=== PATIENT | male | born 1965 | race Caucasian/White ===

== ENCOUNTER 2023-08-29 21:41 | Inpatient (IN) | payer BC, SELFPAY ==
[2023-08-29 19:17] VITALS: BP 99/64
--- NOTE | 2023-08-29 19:38 | ED.GENMED ---
History of Present Illness
<ISABELL Phan - Last Filed: 08/29/23 21:03>
General
Chief Complaint: Chest Pain
Source: patient
Exam Limitations: none
Time Seen by Provider: 08/29/23 19:22
Travel History
Have you had any contact with someone who has COVID-19?: No
Do you have any symptoms of coronavirus? Fever > 100 degrees, chills, cough, shortness of breath, sore throat, loss of taste or smell, muscle aches, or headache?: No
History of Present Illness
History of Present Illness:
This is a 58 year old male that comes in with c/o SOB. State that he was walking at work and pushing his cart and he was SOB. States that he had to stop and catch his breath. States that this was worse today. Feels that it started on Tuesday as
they were doing yard work and he had to stop. States that he also felt his heart was racing a couple of times. States that he feels SOB. Denies any fever, chills, chest pain, cough, abd pain, nausea, vomiting, diarrhea, headache, dizziness, urinary
burning.
Past History
<ISABELL Phan - Last Filed: 08/29/23 21:03>
Past History
ED Past Medical History: HTN, Hypercholesterolemia, NIDDM and Other (Renal calculus)
ED Past Surgical History: Urological (Lithotripsy for Kidney stones) and Other (Hernia, )
Social History
Tobacco: Former smoker
Alcohol: Occasional
Personal:
Living: with family
Employment: Employed
Review of Systems
<ISABELL Phan - Last Filed: 08/29/23 21:03>
Review of Systems
All Other Systems: ROS reviewed and negative except as documented in HPI and ROS
Constitutional: Reports no symptoms; Denies fever or chills
EENT: Reports no symptoms
Respiratory: Reports trouble breathing; Denies cough
Cardiac: Reports no symptoms; Denies chest pain
ABD/GI: Reports no symptoms; Denies abdominal pain, nausea, vomiting or diarrhea
: Reports no symptoms; Denies dysuria, frequency or urgency
Musculoskeletal: Reports no symptoms
Skin: Reports no symptoms
Neurological: Reports no symptoms; Denies dizzy or headache
Psychiatric: Reports no symptoms
Phy Exam
<ISABELL Phan - Last Filed: 08/29/23 21:03>
General Physical Exam
General Presentation: well appearing and no apparent distress
General age: appears stated age
General Skin: warm and dry
General Habitus: normal
General Mental: alert
General Hydration: appears well hydrated
ENT Exam
ENT Exam: TM's normal, pharynx normal and neck supple
Eye Exam
Eye Exam: EOMI
Cardiovascular Exam
Cardiovascular Exam: regular rate/rhythm, no edema, normal peripheral pulses and other (Murmur)
Pulmonary Exam
Pulmonary Exam: lungs clear, no respiratory distress, no rales, chest non tender, no crackles, no rhonchi, no wheezing and no cough
Gastrointestinal Exam
Gastrointestinal Exam: normal bowel sounds, non tender, soft, no organomegaly, no pulsatile mass and non distended
Musculoskeletal Exam
Musculoskeletal Exam: full ROM and no edema
Skin Exam
Skin Exam: normal color, warm/dry, no rash and no petechia
Psychiatric Exam
Psychiatric Exam: normal mood/affect
Scores
<ISABELL Phan - Last Filed: 08/29/23 21:03>
Heart Score for Chest Pain Patients
STEMI patient?: No
History: Moderately Suspicious
ECG: Significant ST-Depression
Age: >45 - <65 years
Risk Factors: 1 or 2 Risk Factors
Troponin: >/= 3 x Normal Limit
Heart Score for Chest Pain Patients: 7
Heart Score Risk: 72.7 % MACE over next 6 weeks
<Gabriele Kathleen MD - Last Filed: 08/29/23 21:15>
Heart Score for Chest Pain Patients
Heart Score for Chest Pain Patients: 7
Heart Score Risk: 72.7 % MACE over next 6 weeks
Course
<ISABELL Phan - Last Filed: 08/29/23 21:03>
Orders/Labs/Results
Orders:
Orders
08/29/23 19:13
Electrocardiogram (*1) Urgent
Reason for Study: Chest Pain
EKG- Treatment ONCE
08/29/23 19:36
CMP [Comprehensive Metabolic Panel] Urgent
Complete Blood Count/With Diff Urgent
Troponin I Urgent
08/29/23 19:38
0.9% Sodium Chloride 500 ml [Nss] 500 ml IV BOLUS
08/29/23 19:49
D-Dimer Urgent
PTT Urgent
08/29/23 20:33
0.9% Sodium Chloride 500 ml [Nss] 500 ml IV BOLUS
Insulin Aspart [NOVOLOG vial] 14 units SC NOW STA
08/29/23 20:36
Hemoglobin A1c [Glycohemoglobin (HgbA1c)] Urgent
08/29/23 20:37
Aspirin Chewable [Low Strength Aspirin] 324 mg PO NOW STA
08/29/23 20:40
CARDIOLOGY CONSULT Urgent
Consulting Provider: Staci Burkett
Was physician already notified: Yes
08/29/23 20:41
CR Chest - 2 Views Urgent
Comment:
Reason For Exam: SOB
08/29/23 20:48
Heparin 4,000 units IV NOW STA
Nursing to Place Non Medication Order As Directed
Physician Order: PTT 6 hours after initial start of Heparin infusion
08/29/23 20:55
Add On- LAB Urgent
Tests Added?: PTT
08/29/23 20:58
Metoprolol [Lopressor] 12.5 mg PO NOW STA
08/29/23 21:00
Heparin 12748 Units/250 ml 25,000 units in 250 ml IV PER PROTOCOL
Weight to be used for heparin protocol in kilograms (kg):: 92
Protocol:: Cardiac Tx/Acute Coronary
PTT Goal Range to be used:: PTT 73 to 111 seconds
Order type:: Initial
INITIAL Infusion Dose (UNITS/KG/hr) & then follow protocol:: 15 units/kg/hr
Infusion Dose in UNITS/hr & then follow protocol (UNITS/hr):: 1,400
INFUSION RATE in mL/hr & then follow protocol (mL/hr):: 14
PTT less than or equal to 64 seconds:: Increase rate by 200 units/hr (+ 2 mL/hr)
PTT 64.1 to 72.9 seconds:: Increase rate by 100 units/hr (+ 1 mL/hr)
PTT 73 to 111 seconds:: Target Range. No change in rate.
PTT 111.1 to 130.9 seconds:: Decrease rate by 100 units/hr (- 1 mL/hr)
PTT 131 to 199.9 seconds:: HOLD for 1 hr. Then decrease rate by 200 units/hr (- 2 mL/hr)
PTT greater than or equal to 200 seconds:: HOLD for 2 hrs & Notify Provider. Then decrease by 200 units/hr (-
2 mL/hr)
Lab follow-up:: Each change, PTT q6h until 2 consecutive are therapeutic. Then PTT
daily.
08/29/23 22:39
Troponin I Urgent
Abnormal Lab Results
08/29/23
19:36
RBC 4.64 L 10^6/uL
(4.70-6.10)
Hct 37.5 L %
(39.0-52.0)
Absolute Neuts (auto) 7.7 H 10^3/uL
(1.4-6.5)
Absolute Lymphs (auto) 1.1 L 10^3/uL
(1.2-3.4)
Neutrophils % 83.0 H %
(42.2-75.2)
Lymphocytes % 11.6 L %
(20.5-51.1)
Sodium 131 L mmol/L
(135-145)
Chloride 95 L mmol/L
(98-107)
BUN 33 H mg/dl
(9-20)
Glucose 559 H* mg/dl
(70-99)
Troponin I 1.110 H* ng/ml
08/29/23 19:36
08/29/23 19:36
Sodium slighlty low. Chloride low. Dehydration. Hyperglycemia, Troponin elevated to 1.110, D-dimer 0.50
Vital Signs
Initial and Last Documented VS:
Initial Vital Signs
Temp Pulse Resp BP Pulse Ox
37.2 C 99 18 99/64 96
08/29/23 19:17 08/29/23 19:17 08/29/23 19:17 08/29/23 19:17 08/29/23 19:17
Last Documented Vital Signs
Temp Pulse Resp BP Pulse Ox
37.2 C 92 22 91/42 96
08/29/23 19:17 08/29/23 20:45 08/29/23 20:45 08/29/23 20:00 08/29/23 20:45
<Gabriele Kathleen MD - Last Filed: 08/29/23 21:15>
Orders/Labs/Results
Orders:
Orders
08/29/23 19:13
Electrocardiogram (*1) Urgent
Reason for Study: Chest Pain
EKG- Treatment ONCE
08/29/23 19:36
CMP [Comprehensive Metabolic Panel] Urgent
Complete Blood Count/With Diff Urgent
Troponin I Urgent
08/29/23 19:38
0.9% Sodium Chloride 500 ml [Nss] 500 ml IV BOLUS
08/29/23 19:49
D-Dimer Urgent
PTT Urgent
08/29/23 20:33
0.9% Sodium Chloride 500 ml [Nss] 500 ml IV BOLUS
Insulin Aspart [NOVOLOG vial] 14 units SC NOW STA
08/29/23 20:36
Hemoglobin A1c [Glycohemoglobin (HgbA1c)] Urgent
08/29/23 20:37
Aspirin Chewable [Low Strength Aspirin] 324 mg PO NOW STA
08/29/23 20:40
CARDIOLOGY CONSULT Urgent
Consulting Provider: Staci Burkett
Was physician already notified: Yes
08/29/23 20:41
CR Chest - 2 Views Urgent
Comment:
Reason For Exam: SOB
08/29/23 20:48
Heparin 4,000 units IV NOW STA
Nursing to Place Non Medication Order As Directed
Physician Order: PTT 6 hours after initial start of Heparin infusion
08/29/23 20:55
Add On- LAB Urgent
Tests Added?: PTT
08/29/23 20:58
Metoprolol [Lopressor] 12.5 mg PO NOW STA
08/29/23 21:00
Heparin 22236 Units/250 ml 25,000 units in 250 ml IV PER PROTOCOL
Weight to be used for heparin protocol in kilograms (kg):: 92
Protocol:: Cardiac Tx/Acute Coronary
PTT Goal Range to be used:: PTT 73 to 111 seconds
Order type:: Initial
INITIAL Infusion Dose (UNITS/KG/hr) & then follow protocol:: 15 units/kg/hr
Infusion Dose in UNITS/hr & then follow protocol (UNITS/hr):: 1,400
INFUSION RATE in mL/hr & then follow protocol (mL/hr):: 14
PTT less than or equal to 64 seconds:: Increase rate by 200 units/hr (+ 2 mL/hr)
PTT 64.1 to 72.9 seconds:: Increase rate by 100 units/hr (+ 1 mL/hr)
PTT 73 to 111 seconds:: Target Range. No change in rate.
PTT 111.1 to 130.9 seconds:: Decrease rate by 100 units/hr (- 1 mL/hr)
PTT 131 to 199.9 seconds:: HOLD for 1 hr. Then decrease rate by 200 units/hr (- 2 mL/hr)
PTT greater than or equal to 200 seconds:: HOLD for 2 hrs & Notify Provider. Then decrease by 200 units/hr (-
2 mL/hr)
Lab follow-up:: Each change, PTT q6h until 2 consecutive are therapeutic. Then PTT
daily.
08/29/23 22:39
Troponin I Urgent
Abnormal Lab Results
08/29/23
19:36
RBC 4.64 L 10^6/uL
(4.70-6.10)
Hct 37.5 L %
(39.0-52.0)
Absolute Neuts (auto) 7.7 H 10^3/uL
(1.4-6.5)
Absolute Lymphs (auto) 1.1 L 10^3/uL
(1.2-3.4)
Neutrophils % 83.0 H %
(42.2-75.2)
Lymphocytes % 11.6 L %
(20.5-51.1)
Sodium 131 L mmol/L
(135-145)
Chloride 95 L mmol/L
(98-107)
BUN 33 H mg/dl
(9-20)
Glucose 559 H* mg/dl
(70-99)
Troponin I 1.110 H* ng/ml
08/29/23 19:36
08/29/23 19:36
Vital Signs
Initial and Last Documented VS:
Initial Vital Signs
Temp Pulse Resp BP Pulse Ox
37.2 C 99 18 99/64 96
08/29/23 19:17 08/29/23 19:17 08/29/23 19:17 08/29/23 19:17 08/29/23 19:17
Last Documented Vital Signs
Temp Pulse Resp BP Pulse Ox
37.2 C 92 22 91/42 96
08/29/23 19:17 08/29/23 20:45 08/29/23 20:45 08/29/23 20:00 08/29/23 20:45
<ISABELL Phan - Last Filed: 08/29/23 21:03>
MDM/Problems Addressed
Differential Diagnosis Includes:
PE, Cardiac ischemia,
MDM/Problems Addressed:
This is a 58 year old male that comes in with c/o SOB. State that this started on Tuesday and was worse today. 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
Will check labs, D-dimer and if positive get CT scan, If negative will get chest x-ray and admit for ST depression and further evaluation.
Back into see patient patient. Explained that he would be admitted. His blood work shows dehydration and hyperglycemia. His Troponin is also elevated. D-dimer normal. Dr. Kathleen spoke with Dr. Burkett. Sent a second message to see if she would
like patient on Heparin. Hospitalist notified about admission.
Chronic conditions affecting care: HTN
Acute Exacerbation and/or Progression of Chronic Illness:
NA
<ISABELL Phan - Last Filed: 08/29/23 21:03>
*Radiology
Radiology exam reviewed: preliminary read by ED provider (Chest- Negative for active disease. )
*Pulse Oximetry
Patient hypoxic: no
*EKG
Interpreted by ED Provider?: Yes
Heart Rate: 100
Rate: tachycardiac
Rhythm: sinus
Kirk: normal axis
Interval: normal interval
QRS Pattern: normal QRS
Ischemia: ST depression (I, II, V4, V5, V6)
*Laundry Presser Interpretation
Rate: tachycardiac
Heart Rate: 100
Rhythm: sinus tachycardia
*Critical Care Note
Total Time (30-74mins, 75-104mins- exclusive of procedures): Not Applicable
ED Attending Note
<ISABELL Phan - Last Filed: 08/29/23 21:03>
-
Portions of this chart may have been created with voice recognition software.� Occasional wrong word or��sound alike� substitutions may have occurred due to the inherent limitations of voice recognition software.
<Gabriele Kathleen MD - Last Filed: 08/29/23 21:15>
ED Attending Note
Patient seen and examined by attending physician: Yes
ED Attending Note:
I have seen and evaluated the patient with a [id number] encounter. I have spoken to the advance practicer provider and involved in the medical history, the physical exam, medical decision making.
Evaluation and management service: agree unless noted differently below.
Results interpretation: agree unless noted differently below.
Focused HPI: 58-year-old male with history of hypertension, hyperlipidemia, diabetes who presents for evaluation of exertional dyspnea. Patient reports onset Tuesday while he was doing yard work�he reports that he has to rest frequently due to
dyspnea on exertion while doing basic yard tasks. He says that Tuesday started have symptoms even with walking up the stairs. Today the symptoms continued even with light exertion and so he came to the emergency room. He denies any dyspnea at
rest. He denies any chest pain at any point. He denies any other complaints. Denies any known cardiac history.
Physical exam: Awake alert not in distress. Soft blood pressure but otherwise normal vitals. He has a systolic murmur on cardiac auscultation. Lungs clear to auscultation bilaterally. No edema. Good pulses in all extremities.
Medical Decision Makin-year-old male presents with progressive exertional dyspnea for the past few days. No symptoms at rest. Concern for unstable angina. EKG shows lateral ST depressions. Recent labs including a CBC which showed no anemia,
CMP which showed poorly controlled blood glucose with sugar of 559. D-dimer negative. Initial troponin 1.1. Chest x-ray no acute disease. Discussed with cardiology, treated with aspirin, heparin. Admit to hospitalist.
Discharge Plan
Departure
Patient Disposition: Admit
Date of Disposition: 08/29/23
Time of Disposition: 20:48
Admit to: Telemetry
Presentation/result/management discussed w/ accepting MD/DO: Hospitalist
Patient with high blood pressure during this ER visit?: No
Condition: Good
Covid-19: Not Applicable
Discharge Problem:
SOB (shortness of breath), Elevated troponin
Prescriptions:
No Action
lisinopril-hydrochlorothiazide 20-12.5 mg Tablet
1 tab PO DAILY
pravastatin 80 mg Tablet
80 mg PO HS
Janumet XR 100-1,000 mg Tablet, Er Multiphase 24 Hr
1 tab PO QPM
Interventions
Interventions:
*Risk Screen - Suicide Last Done: 08/29/23 19:17
*General Assessment Last Done: 08/29/23 19:17
*Neglect/Abuse Screening Last Done: 08/29/23 19:17
ED- Fall Risk Assessment Last Done: 08/29/23 20:15
ED- Cardiac Assessment Last Done: 08/29/23 20:15
Discharge Date and Time
Print Language: ARABIC
[2023-08-29 19:42] VITALS: BMI 28.3
[2023-08-29 19:43] VITALS: BP 97/74
[2023-08-29] MEDS: NSS 500 IV ×4 (19:50→21:33)
[2023-08-29 20:00] VITALS: BP 91/42
[2023-08-29 20:01] LABS: % Basophils 0.1 % (0-2); % Immature Granulocytes 0.4 % (0-0.5); % Lymphocytes 11.6 % (20.5-51.1); % Monocytes 4.9 % (1.7-9.3); Absolute Lymphocytes 1.1 10^3/uL (1.2-3.4); Absolute Monocytes 0.5 10^3/uL (0.1-0.6); Absolute Neutrophils 7.7 10^3/uL (1.4-6.5); Hematocrit 37.5 % (39.0-52.0); Hemoglobin 13.5 g/dL (13.0-18.0); Mean Corpuscular Hgb 29.1 pg (27.0-31.0); Mean Corpuscular Volume 80.8 fL (80.0-94.0); Mean Platelet Volume 10.2 fL (7.4-10.4); Nucleated Red Blood Cells % 0 % (-); Platelet Count 261 10^3/uL (130-400); Red Blood Cell Count 4.64 10^6/uL (4.70-6.10); Red Cell Dist. Width 12.9 % (11.5-14.5); White Blood Cell Count 9.3 10^3/uL (4.8-10.8)
--- NOTE | 2023-08-29 20:30 | EDRN ---
Updated patient and his on lab results, SAURAV Herrera in as well to go over results with patient and .
[2023-08-29 20:32] LABS: ALT (SGPT) 36 U/L (0-50); AST (SGOT) 40 U/L (17-59); Albumin 4.5 g/dl (3.5-5.0); Alkaline Phosphatase 76 U/L (38-126); Blood Urea Nitrogen 33 mg/dl (9-20); Carbon Dioxide 22 mmol/L (22-30); Chloride 95 mmol/L (98-107); Estimated Creatinine Clearance 71 ml/min; Glucose 559 mg/dl (70-99); Sodium 131 mmol/L (135-145); Total Bilirubin 0.8 mg/dl (0.2-1.3); Total Protein 6.8 g/dl (6.3-8.2); eGFR > 60.00
[2023-08-29] MEDS: NOVOLOG vial 14 UNITS SC (20:44)
[2023-08-29] MEDS: LOW STRENGTH ASPIRIN 324 MG PO (20:45)
[2023-08-29 21:04] VITALS: BP 112/84
[2023-08-29] MEDS: HEPARIN 4000 UNITS IV (21:16)
[2023-08-29] MEDS: HEPARIN 25000 UNITS/250 ML IV (21:18)
[2023-08-29 21:25] LABS: Glucose - Point of Care 451 mg/dl (70-99)
--- NOTE | 2023-08-29 21:31 | HPS.HSE ---
Family Physician
-
Family Physician:
Chief Complaint
-
SOB
History of Present Illness
Patient is a 58y M with PMH significant for hypertension and DM-II who presents to ED complaining of GUZMÁN. Patient states that he initially noted some mild dyspnea with activity on Tuesday. He notes that he was 'aware' of his breathing
initially. He denies any chest pain or pressure. His symptoms gradually worsened over the weekend. Last PM he felt nauseated / indigestion and was unable to sleep well. Today, he went to work where he is required to lift, push, pull, etc. He
noted significant shortness of breath with that activity. His symptoms did improve with rest.
Patient became diaphoretic at home this evening and felt his heart racing. He presented to the ED for further evaluation.
Patient denies any prior history of similar symptoms.
In the ED, he notes that he is asymptomatic at rest.
Medical History
Past Medical History
Past Medical History: Reports Other
Additional Past Medical History:
Hypertension
DM-II
Dyslipidemia
Past Surgical History: Reports Other
Additional Past Surgical History:
Hernia Repair with Mesh
Lithotripsy
Social History
Tobacco: Former Smoker (Quit smoking in 1980s. Total of < 10 pack years.)
Alcohol: Occasional
Drug: None
Family History
Family History: Other (Father: Colon Cancer)
Allergies / Home Medications
Allergies reflects when Allergies were last updated in [email or web address].
Home Medications with original date entered in [email or web address]
Allergy/Medication List:
Allergies
Allergy/AdvReac Type Severity Reaction Status Date / Time
No Known Allergies Allergy Unverified 08/29/23 19:16
Home Medications
lisinopril 20 mg-hydrochlorothiazide 12.5 mg tablet 1 tab PO DAILY 08/29/23
pravastatin 80 mg tablet 80 mg PO HS 08/29/23
sitagliptin phos 100 mg-metformin ER 1,000 mg tablet,extend rel 24h mp (Janumet XR) 1 tab PO QPM 08/29/23
Review of Systems
-
History Source: Patient
A 12 point ROS was completed and negative except as noted: Yes
Constitutional: Denies Fever or Chills
EENT: Denies Sore Throat
Respiratory: Reports Trouble Breathing; Denies Cough or Hemoptysis
Cardiac: Reports Diaphoresis and Palpitations; Denies Chest Pain or Syncope
Abdomen/GI: Reports Nausea; Denies Abdominal Pain, Vomiting, Diarrhea, Constipated or Anorexia
: Denies Dysuria, Frequency or Flank Pain
Neurological: Denies Dizzy or Headache
Psych: Denies Depression or Anxiety
Physical Exam
Vital Signs
Vital Signs
Temp Pulse Resp BP Pulse Ox
98.9 F 92 22 91/42 96
08/29/23 19:17 08/29/23 20:45 08/29/23 20:45 08/29/23 20:00 08/29/23 20:45
Physical Exam
General: Other (58y M in no acute distress.)
HEENT: Moist mucous membranes and PERRLA
Respiratory: Clear; No Wheezes, Rales or Rhonchi
Cardiac: S1/S2, Regular Rhythm and Murmur (III/ TAJ)
GI: Soft, Non Tender, Non Distended and Normal Bowel Sounds
Musculoskeletal: No Clubbing, No Cyanosis and No Edema
Neuro: AO x 3
Laboratory Results
-
08/29/23 19:36
Laboratory Results
APTT Cancelled 08/29/23 20:48
Total Bilirubin 0.8 mg/dl (0.2-1.3) 08/29/23 19:36
AST 40 U/L (17-59) 08/29/23 19:36
ALT 36 U/L (0-50) 08/29/23 19:36
Alkaline Phosphatase 76 U/L (38-126) 08/29/23 19:36
Troponin I 1.110 ng/ml H* 08/29/23 19:36
Impression/Plan
-
A/P: Patient is a 58y M with PMH significant for hypertension and DM-II who presents to ED complaining of SOB for the past 3 days.
ACS
- Admit for further evaluation and treatment.
- Symptoms highly suspicious for ACS in 50+ male, Diabetic with abnormal EKG and elevated troponin.
- ASA given in the ED and will continue daily with statin, beta-liya, etc.
- IV heparin.
- Follow serial troponin to peak.
- Symptom-free at rest - follow for any changes.
- Check fasting lipids, A1C, etc.
- Cardiology evaluation and probable cath in the AM.
DM-II, Uncontrolled
- Marked hyperglycemia without significant elevation in anion gap.
- Insulin / IVFs given in the ED.
- Follow glucose and administer additional insulin / SSI as needed for control.
- Continue IVFs.
- Update A1C as noted above.
Benign Hypertension
- Currently borderline hypotensive.
- Hold lisinopril / HCT for now.
- Initiate beta liya as noted above.
- Adjust med regimen for BP control and to include GDMT prior to discharge.
Murmur
- Significant systolic murmur appreciated on exam.
- Patient states he was told of this several years ago, but has never had Echo, etc.
- Check Echo.
DVT Prophylaxis: On therapeutic heparin
Code Status: Full
--- NOTE | 2023-08-29 21:44 | EDRN ---
Re-checked patients blood sugar, read HIGH on accu check, ordered and sent formal glucose, updated Dr. perez on this as well, more fluids ordered and will update him once formal result is back. Patient resting comfortably at this time, at
bedside will continue to monitor.
[2023-08-29 22:00] VITALS: BP 96/70
[2023-08-29 22:12] LABS: Glucose 384 mg/dl (70-99)
--- NOTE | 2023-08-29 22:29 | EDRN ---
Updated Dr. Singh on patients formal blood sugar level of 384, continue current orders, no new orders as of now.
[2023-08-29 23:25] LABS: Glucose - Point of Care 280 mg/dl (70-99)
[2023-08-29 23:28] VITALS: BP 99/69
[2023-08-29] MEDS: NSS 1000 IV (23:49)
--- NOTE | 2023-08-29 23:59 | PTCARENOTE ---
Patient admitted to 2241, walked into room. AO x3, denies chest pain or SOB, lungs CTA. Heparin infusing at 1400 units/hr. IVF started per MAR. Plan of care reviewed with patient and at bedside, call montemayor in reach
[2023-08-30] VITALS (13 sets, daily range): BP systolic 82–95; BP diastolic 59–76
[2023-08-30 04:10] LABS: APTT 93.4 Sec (23.4-35.0)
[2023-08-30 04:18] LABS: Blood Urea Nitrogen 27 mg/dl (9-20); Carbon Dioxide 23 mmol/L (22-30); Chloride 106 mmol/L (98-107); Estimated Creatinine Clearance 106 ml/min; Glucose 161 mg/dl (70-99); HDL Cholesterol 30 mg/dl; LDL Cholesterol, Calculated 67 mg/dl; Potassium 3.8 mmol/L (3.5-5.1); Sodium 137 mmol/L (135-145); Total Cholesterol 121 mg/dl (50-199); Triglyceride 122 mg/dl (10-149); Very Low Density Lipoprotein 24 mg/dl (0-30); eGFR > 60.00
--- NOTE | 2023-08-30 04:56 | PTCARENOTE ---
BP 86/68, MAP 72. Patient asymptomatic. Notified Reina WHYTE, continue to monitor. NSS at 100/hr. Voided at 0300 in the toilet. Provided urinal for I & O. Labs & EKG obtained. Call montemayor in reach
[2023-08-30 07:14] LABS: Glucose - Point of Care 196 mg/dl (70-99)
--- NOTE | 2023-08-30 08:03 | CON.CAR ---
Addendum entered and electronically signed by Staci Burkett MD 08/30/23 09:36:
I saw and examined the patient.
The FOUNDER CEO & PRESIDENT's note was reviewed and I agree with the note.
Comment: 58-year-old male with HTN, HLD, NIDDM, and bicuspid aortic valve aortic stenosis who presented with a chief complaint of shortness of breath. His shortness of breath started approximately 3 days ago that progressed to severe dyspnea with
just the slightest motion. He is feeling fine at rest. He never followed up with cardiology as recommended upon echo diagnosis of bicuspid aortic stenosis. His DM is poorly controlled. On exam he has a harsh systolic murmur in the rusb radiates
every where, no clear A2. His lungs are clear, legs without edema. No will trop elevation, ecg with diffuse st sagging. Differential is ACS vs progressive . Will need echo and cath today. Will need to determine the best intervention after data
collected. For now continue heparin gtt and asa. Will follow.
Original Note:
Consultation
Consultation Request
Date/Time Consultation Requested: 08/29/2023 20:40
Date/Time Consultation Performed: 08/30/2023 08:00
Requesting Provider: Dr. Kathleen
Performing Provider: ISABELL Sigala for Dr. Burkett
Reason for Consultation: Abnormal troponin
Medical History
-
Chief Complaint: Shortness of breath
History of Present Illness:
Maxim Delgado is a 58-year-old male with HTN, HLD, NIDDM, and aortic stenosis who presented with a chief complaint of shortness of breath. His shortness of breath started approximately 3 days ago. It was mild and exertional only. Yesterday,
while at work he was unable to walk while holding or pushing anything. He was able to stand at his desk without shortness of breath but was unable to perform any activity without needing to sit and recover. He reports having no chest pain just the
feeling of being unable to catch his breath. He reports medication adherence but has not seen his PCP in quite some time. He has not obtained outpatient labs in several years. He has no family history of coronary artery disease to his knowledge.
He is currently having no symptoms of shortness of breath at rest. He has ST abnormalities on his EKG. His troponin is being trended and is currently over 2.
He was referred to cardiology after he was found to have aortic stenosis in 2019. Unfortunately, he never made and appointment.
Past Medical History
Past Medical History: HTN, Hypercholesterolemia, NIDDM and Valvular Disease (aortic stenosis)
Past Surgical History: Urological (Lithotripsy) and Other (Hernia repair [1996])
Social History
Tobacco: Former Smoker
Personal:
Living: With Family
Employment: Employed
Family History
Family History: Reviewed & Not Pertinent and Other (Father due to colon cancer in his 70s. Mother in her 80s due to pneumonia.)
Allergies / Home Medications
Allergy/AdvReac Type Severity Reaction Status Date / Time
No Known Allergies Allergy Verified 08/29/23 23:40
�Medication �Instructions �Recorded �Confirmed �Type
lisinopril 20 1 tab PO DAILY Blood Pressure 08/29/23 08/29/23 History
mg-hydrochlorothiazide 12.5 mg
tablet
pravastatin 80 mg tablet 80 mg PO HS High Cholesterol 08/29/23 08/29/23 History
sitagliptin phos 100 mg-metformin 1 tab PO QPM Diabetes 08/29/23 08/29/23 History
ER 1,000 mg tablet,extend rel 24h
mp (Janumet XR)
Review of Systems
-
History Source: Patient
All other systems: Negative unless noted
Respiratory: Trouble Breathing
Cardiac: No Symptoms
Abdomen/GI: No Symptoms
Physical Exam
Vital Signs
Temp Pulse Resp BP Pulse Ox
98.4 F 89 16 86/63 98
08/30/23 07:10 08/30/23 07:10 08/30/23 07:10 08/30/23 04:53 08/30/23 07:10
Lab Results
08/29/23 19:36
08/30/23 03:39
Troponin I Cancelled 08/30/23 17:15
Physical Exam
General: Well Developed, Well Nourished, No Apparent Distress and Comfortable
HEENT: Normocephalic, Anicteric and Moist Mucous Membranes
Respiratory: Clear and Non Labored Respirations
Cardiac: S1/S2, Regular Rhythm and Murmur (IV/)
Breast: Deferred by me
GI: Soft, Non Tender, Non Distended and Normal Bowel Sounds
Rectal: Deferred by Provider
Genito-urinary: No Costovertebral Tender
Musculoskeletal: No Clubbing, No Cyanosis and No Edema
Skin: Warm and Dry
Neuro: AO x 3
Hematologic/Lymphatic: No Lymphadenopathy
Psych: Calm
Impression / Plan
-
BACKGROUND: 58M with HTN, HLD, NIDDM, and aortic stenosis who presented with a chief complaint of shortness of breath
ACS
-Presented with shortness of breath
-Troponin 2.280, trend to peak
-ST abnormality on EKG
-Loaded with ASA 324mg yesterday, continue 81mg daily
-Heparin gtt, continue
-Cardiac catheterization today
HTN, BP soft, mild cLVH on TTE (2019), update
HLD, LDL 67 on pravastatin, transition to high intensity statin
Aortic stenosis, moderate, peak/mean gradients 54/29mmHg, update TTE
Mildly dilated ascending aorta, 4.0cm (2019)
Type II DM, uncontrolled, Hgba1c 9.8%
Former smoker, continued cessation recommended
Data Reviewed
-
EKG: Report Reviewed by me (Sinus rhythm, ST abnormality, rate 100; Sinus rhythm, PVCs, ST abnormality, rate 84)
Radiology: Report Reviewed by me (CXR: No active cardiopulmonary disease.)
Labs: Labs Reviewed by me
Old Records: Reviewed (Outpatient PCP notes)
[2023-08-30 08:39] LABS: Glycohemoglobin (HgbA1c) 9.8 % (4.0-5.6)
[2023-08-30] MEDS: TOPROL XL 12.5 MG PO (08:42)
[2023-08-30] MEDS: NOVOLOG FLEXPEN-MODERATE RESISTANCE SC ×2 (08:42→11:34)
[2023-08-30] MEDS: LOW STRENGTH ASPIRIN 81 MG PO (08:42)
[2023-08-30] MEDS: NSS 500 IV (08:43)
--- NOTE | 2023-08-30 10:31 | CARDSERVLU ---
Echocardiogram with Lumason completed after protocol screening completed. Allergies verified.
Patent IV site: __existing 20P RFA___
IV site flushed with 0.9% NaCl pre and post administration.
Diluted bolus method utilized to enhance visualization of ventricular fair.
Total volume given: __3.5__ mL
Patient tolerated all procedures well without complications.
--- NOTE | 2023-08-30 10:45 | PTCARENOTE ---
sent via wheelchair for echo. remains on hep gtt. will continue to monitor.
[2023-08-30] MEDS: NSS IV (11:34)
[2023-08-30 11:59] LABS: APTT 61.9 Sec (23.4-35.0)
--- NOTE | 2023-08-30 12:28 | PN.DE.MGMTRT ---
Insulin Management
- -
08/30/2023 Diabetes Management Consult
Patient admitted 08/28 with increasing SOB. PMH HTN, HCL, valvular disease, aortic stenosis, obesity, type 2 diabetes 12 years. Prior to admission was taking Janumet 100/1000. A1C 9.8%, cr .8, eGFR > 60.
Patient is off the unit for testing, I spoke to his in his room. She states he has not taken care of his diabetes. States initially he had a meter but has not used it in years, has not followed diet.
has researched Farxiga, patient can use copay card for 0$ copay.
Patient still having testing. Will not restart metformin till all testing completed.
Will start Januvia 100 mg and Farxiga 10 mg both now. 1800 calorie diet recommended.
Will provide meter and instruct.
Diabetes History
- -
Type of Diabetes: 2
Pre-Admission Diabetes Regimen
08/29/23 08/30/23
19:36 03:39
Creatinine 1.2 0.8
Lab Results
Hemoglobin A1c 9.8 % (4.0-5.6) H 08/29/23 21:27
Insulin Pump Settings
IP Diabetes Regimen
08/29/23 08/29/23 08/29/23
19:36 21:24 21:27
Glucose 559 H* 384 H
POC Glucose 451 H*
08/29/23 08/30/23 08/30/23
23:23 03:39 07:12
Glucose 161 H
POC Glucose 280 H 196 H
Patient Education
[2023-08-30] MEDS: JANUVIA 100 MG PO (13:01)
--- NOTE | 2023-08-30 14:56 | ITS.CL.CATH ---
Sole Conditioner - Catheterization
Cardiac Catheterization
Procedure Report:
CARDIAC CATHETERIZATION REPORT
Date of Procedure: 08/30/2023
Referring: Sarai Burkett MD
Indication: CHF with severe aortic stenosis
HEMODYNAMIC DATA
AO: 80/53
LV: Not done
LEFT VENTRICULOGRAPHY: Not done
CORONARY ANGIOGRAPHY
Dominance: Right
Left Main: Normal
LAD: Trivial luminal irregularities
Circumflex: Mild luminal irregularities
RCA: Mild luminal irregularities
Closure Device: None-the procedure was performed via the right radial artery. The Austin's test was normal prior to the procedure.
Radiation (mGy): 227
DAP (cm2.Gy): 23.8
Fluoroscopy time: 3.6 minutes
CONCLUSIONS
1: Known severe aortic stenosis/bicuspid aortic valve
2: No significant CAD
3. Proceed with surgical AVR
Copy to: Sarai Burkett MD, ISABELL Sanchez
Jamal Jay MD, [facility], [facility]
--- NOTE | 2023-08-30 15:15 | CM ---
spoke with pt in room, he is prev indep, lives with his kayla 2 story home with 6 steps to enter. he denies any dme's or dc planning needs. plan is for dc to home when medically stable
--- NOTE | 2023-08-30 15:17 | W.PN.HOSP.TC ---
Today's Communication/Plan
-
ct surgery for surgical valve replacement
DM regimen adjustment
Assessment / Plan
Assessment / Plan
Physical Exam
General: Other (58y M in no acute distress.)
HEENT: Moist mucous membranes and PERRLA
Respiratory: Clear; No Wheezes, Rales or Rhonchi
Cardiac: S1/S2, Regular Rhythm and Murmur (III/ TAJ)
GI: Soft, Non Tender, Non Distended and Normal Bowel Sounds
Musculoskeletal: No Clubbing, No Cyanosis and No Edema
Neuro: AO x 3
A/P: Patient is a 58y M with PMH significant for hypertension and DM-II who presents to ED complaining of SOB for the past 3 days.
#Nonischemic myocardial injury
#Valvular abnormalities
� Possibly secondary to severe aortic stenosis/bicuspid aortic valve
�Left ventricular ejection fraction is 40-45%
-No significant CAD
� CT surgery consulted
#HFpEF
-started on januvia
-hct held, can restart most likely tomorrow
DM-II, Uncontrolled
-a1c - 9.8
-DM educator consulted
-has been noncompliant
-Januvia 100 mg and Farxiga 10 mg
-1800 calorie diet recommended.
Benign Hypertension
- Currently borderline hypotensive.
- Hold lisinopril / HCT for now.
- Adjust med regimen for BP control and to include GDMT prior to discharge.
DVT Prophylaxis: On therapeutic heparin
Code Status: Full
Total time spent on today's encounter was 51 minutes which included time spent in counseling the patient/family regarding diagnosis and treatment plan as listed above, goals of care, and symptom management. Case was discussed with nursing staff,
specialists, and care coordinators/case management. All labs and imaging personally reviewed by me. Remainder the time spent in detailed review of previous records, lab data, imaging, and other medical provider documentation.
Anticipated Discharge: > 48 hours
Subjective/Interval History
-
Date of Service: August 30, 2023
Cardiac cath today, no significant CAD. Multiple severe aortic stenosis/bicuspid aortic valve
Objective Data
-
Labs:
Laboratory Results
08/30/23 08/30/23 08/30/23
03:39 11:10 18:00
APTT 93.4 H 61.9 H Pending
Sodium 137
Potassium 3.8
Chloride 106
Carbon Dioxide 23
BUN 27 H
Creatinine 0.8
Glucose 161 H
Calcium 9.0
Vital Signs:
Vital Signs
Temp Pulse Resp BP Pulse Ox
97.6 F 81 18 92/70 100
08/30/23 15:00 08/30/23 12:18 08/30/23 15:00 08/30/23 12:18 08/30/23 15:00
I&O
08/29/23 08/30/23 08/31/23
06:59 06:59 06:59
Intake Total 600 / 600 600 / 600
Output Total 500 / 500
Balance 600 / 600 100 / 100
Review of Systems
-
History Source: Patient
All other systems: Not reviewed unless documented
Data Reviewed
-
Diagnostic Radiology: Image personally visualized and interpreted and Report Reviewed by me
Medical Tests (Nuc Med, Echo etc): Report Reviewed by me
Labs: Labs Reviewed by me
--- NOTE | 2023-08-30 15:23 | CONSULT.CT ---
Consultation
-
Date/Time Consultation Requested: 08/29
Date/Time Consultation Performed: 08/29
Requesting Provider: Dr. Jamal Jay
Performing Provider: Michaela Ceasr for Dr. Papi Parnell
Reason for Consultation: evaluate for AVR
Patient History
Physicians
Family Physician: Paula Gonzalez
Inpatient Dress Marker: Jamal Jay
History of Present Illness
58-year-old, right hand dominant, male with past history significant for type 2 diabetes and hypertension, was in usual state of health until 08/28 when he developed exertional dyspnea while pushing a cart at work. Patient experienced
similar symptoms while doing yard work this past Tuesday. Symptoms resolved with rest. States that he also felt his heart was racing a couple of times. Denies any fever, chills, chest pain, cough, abd pain, nausea, vomiting, diarrhea, headache,
dizziness, urinary burning. Troponins 1.1>1.6>2.2>1.6. A TTE on 08/30/2023 reported reduced LV ejection fraction with bicuspid aortic valve and severe aortic stenosis. Troponin elevation due to demand ischemia from bicuspid aortic valve with
critical aortic stenosis. Cardiac catheterization performed 08/29, reports mild luminal irregularities of all coronaries. Hemoglobin A1c was 9.8, and diabetes management team is following for medication adjustment. Maria Dolores is on hold status post
cardiac cath.
Catheterization (R radial) 08/29 w/Dr. Jay:
Left Main: Normal
LAD: Trivial luminal irregularities
Circumflex: Mild luminal irregularities
RCA: Mild luminal irregularities
TTE 08/29:
EF of 40-45%, bicuspid aortic valve with severe aortic stenosis, ADRIANA 0.4 cm�, aortic valve gradients 97/69 mmHg, and mild AI. Ascending aorta measures 4.0 cm.
Past Medical History
Past Medical History: GUZMÁN, HTN, Hypercholesterolemia and NIDDM (diagnosed 12 years ago-oral meds. Followed by PCP)
Past Surgical History
Past Surgical History: Other (Inguinal herniorrhaphy )
Dental History
Full lower dentures, 1 tooth remaining on the upper plate.
Social History
Alcohol: Occasional
Drug: None
Tobacco: Former Smoker (Quit in the 1980s)
Personal:
Living: With Spouse
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
Allergies
Allergy/AdvReac Type Severity Reaction Status Date / Time
No Known Allergies Allergy Verified 08/29/23 23:40
Home Medications
�Medication �Instructions �Recorded �Confirmed �Type
lisinopril 20 1 tab PO DAILY Blood Pressure 08/29/23 08/29/23 History
mg-hydrochlorothiazide 12.5 mg
tablet
pravastatin 80 mg tablet 80 mg PO HS High Cholesterol 08/29/23 08/29/23 History
sitagliptin phos 100 mg-metformin 1 tab PO QPM Diabetes 08/29/23 08/29/23 History
ER 1,000 mg tablet,extend rel 24h
mp (Janumet XR)
Review of Systems
-
History Source: Patient
General: Reports No Symptoms
HEENT: Reports No Symptoms
Respiratory: Reports GUZMÁN
Cardiac: Reports No Symptoms
Abdomen/GI: Reports No Symptoms
: Reports No Symptoms
Musculoskeletal: Reports No Symptoms
Skin: Reports No Symptoms
Neurological: Reports No Symptoms
Vascular: Reports No Symptoms
Physical Exam
Vital Signs
Temp 97.6 F 08/30/23 15:00
Temp route: Oral 08/30/23 15:00
Pulse 81 08/30/23 12:18
Rhythm: Normal sinus rhythm 08/30/23 08:00
With- PVC's Monomorphic 08/30/23 00:06
Resp Rate 18 08/30/23 15:00
Blood pressure 92/70 08/30/23 12:18
Blood pressure extremity used: Right upper arm 08/30/23 15:00
Position: Lying 08/30/23 15:00
MAP (cuff-Simon Monitor) 78 08/30/23 12:18
SaO2 100 08/30/23 15:00
Oxygen Mode of Delivery Room air 08/30/23 15:00
Can the patient verbally communicate their pain? Yes 08/30/23 08:00
Actual Weight 92 kg 08/29/23 19:42
Body Mass Index (BMI) 28.3 08/29/23 19:42
Labs
08/29/23 19:36
08/30/23 03:39
APTT 61.9 Sec (23.4-35.0) H 08/30/23 11:10
Hemoglobin A1c 9.8 % (4.0-5.6) H 08/29/23 21:27
Troponin I Cancelled 08/30/23 17:15
Exam
General: Well Developed, Well Nourished and No Apparent Distress
HEENT: Normocephalic, Anicteric, Moist Mucous Membranes and PERRLA
Respiratory: Clear
Cardiac: S1/S2, Regular Rhythm and Murmur
GI: Soft, Non Tender, Non Distended and Normal Bowel Sounds
Rectal: Deferred by Provider
Skin: Warm and Dry
Neuro: AO x 3, No Motor Deficits and CN X-XII Intact
Extremities: Pulses (+2/4 DP pulses B/L)
Lymph: No Lymphadenopathy
Psych: Calm
Assessment / Plan
-
58-year-old male with bicuspid aortic valve and critical aortic stenosis with reduced left ventricular ejection fraction (40-45%)
- Preop diagnostic testing ordered including panelipse (1 tooth remaining)
- Noncontrast CT of chest for preop planning ordered
-Diabetes management team following for uncontrolled diabetes and adjustment in medications
- DR. Parnell to review imaging and discuss risk/benefit with patient and his
-AVR date to be determined
Data Reviewed
-
EKG: Report Reviewed by me and Discussed with Physician
Kitchen Mechanic: Report Reviewed by me and Discussed with Physician
Echo: Report Reviewed by me and Discussed with Physician
Radiology: Report Reviewed by me and Discussed with Physician
Labs: Labs Reviewed by me and Discussed with Physician
[2023-08-30 15:30] LABS: Glucose - Point of Care 214 mg/dl (70-99)
--- NOTE | 2023-08-30 16:04 | PTCARENOTE ---
removed 3 cc from r radial artery TR band. no oozing.
[2023-08-30] MEDS: HEPARIN 5000 UNITS SC ×2 (16:10→23:01)
--- NOTE | 2023-08-30 16:19 | PTCARENOTE ---
sent via wheelchair for panalipse.
[2023-08-30] MEDS: LIPITOR 80 MG PO (17:58)
[2023-08-30 18:08] LABS: Glucose - Point of Care 332 mg/dl (70-99)
[2023-08-30] MEDS: NOVOLOG FLEXPEN-MODERATE RESISTANCE 7 UNITS SC (18:10)
--- NOTE | 2023-08-30 20:13 | PTCARENOTE ---
R radial dressing CDI- + pulse. plan of care discussed- verbalized education on the IS- states he is getting to 1999. SR on the monitor. bps soft- 90s/60s
[2023-08-30 22:03] LABS: Glucose - Point of Care 234 mg/dl (70-99)
[2023-08-31] VITALS (7 sets, daily range): BP systolic 100–118; BP diastolic 69–87
--- NOTE | 2023-08-31 03:43 | DOWNTIME ---
There was a [employer] [facility] Client Neonatal Critical Care Nurse Downtime on 08/31/2023 from 0100 to 08/31/2023 at 0337. Downtime documentation of patient's care, including medication administrations, has been reconciled in the electronic record per guidelines. Refer to the
patient's paper chart under the miscellaneous tab to see printed paper medication records and downtime forms.
[2023-08-31 04:28] LABS: INR 1.18; PT 14.8 Sec (11.4-14.6)
[2023-08-31 04:29] LABS: APTT 32.3 Sec (23.4-35.0)
[2023-08-31 04:39] LABS: ALT (SGPT) 28 U/L (0-50); AST (SGOT) 28 U/L (17-59); Albumin 3.5 g/dl (3.5-5.0); Alkaline Phosphatase 60 U/L (38-126); Blood Urea Nitrogen 21 mg/dl (9-20); Carbon Dioxide 25 mmol/L (22-30); Chloride 106 mmol/L (98-107); Direct Bilirubin 0.2 mg/dl (0.0-0.4); Estimated Creatinine Clearance 94 ml/min; Glucose 154 mg/dl (70-99); Potassium 4.5 mmol/L (3.5-5.1); Sodium 138 mmol/L (135-145); Total Bilirubin 0.5 mg/dl (0.2-1.3); Total Protein 5.6 g/dl (6.3-8.2); eGFR > 60.00
--- NOTE | 2023-08-31 06:34 | W.PN.UPDATE ---
Update Note
Progress Note Update
patient with critical . hemodynamically stable.
tentatively planning for AVR friday 09/[address] Parnell pending completion of workup
will cont to follow
Vital Signs / Labs
-
Vital Signs and Labs:
Temp Pulse Resp BP Pulse Ox
98.3 F 81 20 100/69 99
08/31/23 03:00 08/31/23 05:00 08/31/23 03:00 08/31/23 03:41 08/31/23 03:00
08/29/23 19:36
08/31/23 03:46
08/29/23 08/30/23 08/30/23
21:27 07:12 11:10
PT
APTT 61.9 H
BUN
Glucose
Hemoglobin A1c 9.8 H
Troponin I 1.600 H* D
Total Protein
POC Glucose 196 H
08/30/23 08/30/23 08/30/23
15:29 18:06 22:01
PT
APTT
BUN
Glucose
Hemoglobin A1c
Troponin I
Total Protein
POC Glucose 214 H 332 H 234 H
08/31/23
03:46
PT 14.8 H
APTT
BUN 21 H
Glucose 154 H
Hemoglobin A1c
Troponin I
Total Protein 5.6 L
POC Glucose
[2023-08-31 07:56] LABS: Glucose - Point of Care 183 mg/dl (70-99)
[2023-08-31] MEDS: JANUVIA 100 MG PO (08:12)
[2023-08-31] MEDS: LOW STRENGTH ASPIRIN 81 MG PO (08:12)
[2023-08-31] MEDS: HEPARIN 5000 UNITS SC ×3 (08:13→22:56)
[2023-08-31] MEDS: NOVOLOG FLEXPEN-MODERATE RESISTANCE 1 UNITS SC (08:13)
[2023-08-31] MEDS: FLUSH (NSS) 2 FLUSH IV (08:14)
--- NOTE | 2023-08-31 08:36 | W.PN.CD ---
Addendum entered and electronically signed by Aniket Chavez MD 08/31/23 14:42:
I saw and examined the patient.
The NATURAL SCIENCE MANAGER's note was reviewed and I agree with the note.
Patient comfortable and currently asymptomatic. Being evaluated for AVR by Dr. Parnell. Patient currently favoring bioprosthetic valve. Patient has concerns regarding long-term anticoagulation. I have reviewed issues related to the difference
between mechanical valve and bioprosthetic valve including lifespan of bioprosthetic valve and the need for additional procedures. It sounds as if he also had this discussion with Dr. Parnell. Coumadin also may be more challenging in this patient
if there are issues with compliance.. Patient will be having additional discussions with the surgical team.:
Original Note:
Today's Communication / Plan
-
-current plan is for surgical AVR Tuesday with pre-op testing per protocol
-follow BP's, which are on the low end. BP meds are currently held.
-continue Farxiga
-brief, asymptomatic SVT noted on monitor. Currently off BB with low BP. Follow telemetry
Impression / Plan
-
BACKGROUND: 58M with HTN, HLD, NIDDM, and aortic stenosis who presented with a chief complaint of shortness of breath
Severe :
-echo 08/30/23: EF 40-45% by Zuniga's method of discs. Global hypokinesis. Bicuspid aortic valve with severe aortic stenosis. Mild aortic regurgitation. Mildly dilated ascending aorta at 4.0 cm. Mild pulmonary hypertension.
-cardiac cath: 1: Known severe aortic stenosis/bicuspid aortic valve 2: No significant CAD
-CT surgery planning for surgical AVR Tuesday, with pre-op testing per protocol
NICM:
-EF as above
-GDMT is currently limited by low BP's. Continue SGLT2 inhibitor.
-does not appear volume overloaded to assessment
Abnormal troponin:
-trop as high as 2.3
-suspect type II [place] in setting of severe aortic valve disease
-echo as above
pSVT:
-brief, noted on tele
-currently off his BP with low BP's
-follow telemetry, add back low dose BB when BP will tolerate
HTN:
-BP on low end and currently off his BP meds
HLD:
LDL 67:
-continue statin
Mildly dilated ascending aorta, 4.0cm
Type II DM, uncontrolled, Hgba1c 9.8%:
-diabetic NATURAL SCIENCE MANAGER and hospitalists following
Former smoker, continued cessation recommended
Physical Exam
Vital Signs/Labs
Vital Signs
Temp Pulse Resp BP Pulse Ox
98.1 F 89 18 100/76 97
08/31/23 07:50 08/31/23 07:53 08/31/23 07:50 08/31/23 07:53 08/31/23 07:50
08/30/23 08/31/23 09/01/23
06:59 06:59 06:59
Actual Weight 92 kg
08/29/23 19:36
08/31/23 03:46
PT 14.8 Sec (11.4-14.6) H 08/31/23 03:46
INR 1.18 08/31/23 03:46
APTT 32.3 Sec (23.4-35.0) 08/31/23 03:46
Magnesium 2.0 mg/dl (1.6-2.3) 08/31/23 03:46
Triglycerides 122 mg/dl (10-149) 08/30/23 03:39
LDL Cholesterol, Calc 67 mg/dl 08/30/23 03:39
VLDL Cholesterol, Calc 24 mg/dl (0-30) 08/30/23 03:39
HDL Cholesterol 30 mg/dl 08/30/23 03:39
LAB Results
08/29/23 08/29/23 08/30/23
19:36 22:48 03:39
Troponin I 1.110 H* 1.620 H* D 2.280 H* D
08/30/23 08/30/23 08/30/23
05:13 11:10 11:13
Troponin I Cancelled 1.600 H* D Cancelled
08/30/23 08/30/23
15:30 17:15
Troponin I Cancelled Cancelled
Physical Exam
Constitutional: No acute distress
EENT: Anicteric
Cardiovascular: Rhythm & rate is regular and Systolic murmur present (III/)
Respiratory: Respiratory effort normal and Lungs clear to auscul.
Neuro/Psych: AO x 3
Other: Skin (warm and dry)
Data Reviewed
-
Date of Service: August 31, 2023
EKG: Other (tele SR, brief SVT)
Echo: Other (as above)
Labs: Labs Reviewed by me
--- NOTE | 2023-08-31 08:36 | PN.DE.MGMTRT ---
Insulin Management
- -
08/31/2023 Diabetes Management Consult Follow up
Patient admitted 08/28 with increasing SOB. PMH HTN, HCL, valvular disease, aortic stenosis, obesity, type 2 diabetes 12 years. Prior to admission was taking Janumet 100/1000. A1C 9.8%, cr .8, eGFR > 60.
Spoke with patients yesterday who states he has not taken care of his diabetes. States initially he had a meter but has not used it in years, has not followed diet.
Cardiac cath 08/29.
has researched Farxiga, patient can use copay card for 0$ copay.
Patient is awake alert and oriented oob in chair. Able to discuss diabetes management.
Glucose 08/29 161 to 332; fasting this AM 154 venous 183 POC.
Januvia 100 mg and Farxiga 10 mg started. 1800 calorie diet.
Provided Contour Next Gen meter and instructed with good return demonstration. Recommended test BID when discharged and report to primary care doctor.
Patient possible for OR Tuesday for AVR
Will follow
Diabetes History
- -
Type of Diabetes: 2
Pre-Admission Diabetes Regimen
08/31/23
03:46
Creatinine 0.9
Lab Results
Hemoglobin A1c 9.8 % (4.0-5.6) H 08/29/23 21:27
Insulin Pump Settings
IP Diabetes Regimen
08/30/23 08/30/23 08/30/23
15:29 18:06 22:01
Glucose
POC Glucose 214 H 332 H 234 H
08/31/23 08/31/23
03:46 07:54
Glucose 154 H
POC Glucose 183 H
Patient Education
--- NOTE | 2023-08-31 08:54 | PN.CDI ---
CDI
- -
CDI:
Physician Documentation Request
Admit Date: 08/29/23 21:41
Dear Doctor Sarah,
Please review the following and provide your response in the progress notes.
Clinical Indicators:
PN, 08/29
#HFpEF
Please provide further specificity regarding the most likely acuity of CHF evaluated, treated and/or monitored.
Chronic HFpEF
Acute on Chronic HFpEF
Other(please specify)
Type Acuity
Systolic Acute
Diastolic Chronic
Combined Systolic/Diastolic Acute on Chronic
Use of terms such as suspected, likely, concern for, or probable (associated with a specific diagnosis that is being evaluated, monitored, or treated as if it exists) are acceptable and can be coded in the inpatient setting, when documented at the
time of discharge.
Thank you,
Sarai Peterson RN BSN CCDS
CDI Specialist
please contact via tiger text
Please use your independent medical judgment in providing your response.
--- NOTE | 2023-08-31 08:58 | PN.CDI ---
CDI
- -
CDI:
Physician Documentation Request
Admit Date: 08/29/23 21:41
Dear Doctor Sarah,
Please review the following and provide your response in the progress notes.
Due to conflicting documentation, please clarify the etiology of the elevated troponin:
Clinical Indicators:
PN, 08/29
#Nonischemic myocardial injury
#Valvular abnormalities
#...� Possibly secondary to severe aortic stenosis/bicuspid aortic valve
Cardiology, PN, 08/30
#Severe :
#-echo 08/30/23: EF 40-45% by Zuniga's method of discs. Global hypokinesis.
#NICM:
#-EF as above
#-GDMT is currently limited by low BP's. Continue SGLT2 inhibitor.
#-does not appear volume overloaded to assessment
#Abnormal troponin:
#-trop as high as 2.3
#-suspect type II DC in setting of severe aortic valve disease
Laboratory Tests
08/29/23 08/29/23 08/30/23
19:36 22:48 03:39
Troponin I 1.110 H* 1.620 H* D 2.280 H* D
08/30/23
11:10
Troponin I 1.600 H* D
Please clarify the following regarding the elevated troponin:
Type II DC
Nonischemic myocardial injury
Other(please specify)
Type of DC
Type I
Type II (due to demand ischemia)
Other (Type 3, 4a, 4b, 4c, 5) please specify
Unable to determine
Use of terms such as suspected, likely, concern for, or probable (associated with a specific diagnosis that is being evaluated, monitored, or treated as if it exists) are acceptable and can be coded in the inpatient setting, when documented at the
time of discharge.
Thank you,
Sarai Peterson RN BSN CCDS
CDI Specialist
please contact via tiger text
Please use your independent medical judgment in providing your response.
--- NOTE | 2023-08-31 09:32 | PTCARENOTE ---
Received patient this morning oob ambulating in his room. Denies any shortness of breath, cath site at the right radial area is dry and intact. Patient sent for his CT of the chest and carotid U/S.
[2023-08-31] MEDS: FARXIGA 10 MG PO (09:52)
--- NOTE | 2023-08-31 10:20 | W.PN.UPDATE ---
Update Note
Progress Note Update
Ongoing pre-operative surgical work up. Tentative surgical date is Saturday September 02, [address] Parnell
[2023-08-31 11:17] LABS: Glucose - Point of Care 205 mg/dl (70-99)
[2023-08-31] MEDS: NOVOLOG FLEXPEN-MODERATE RESISTANCE 3 UNITS SC (13:00)
--- NOTE | 2023-08-31 13:11 | W.PN.HOSP.TC ---
Today's Communication/Plan
-
monitor BP, add BB if needed
Cont Farxiga
glucose control
pre-op surgical work up
tentative plan for surgical AVR Friday 09/01
Assessment / Plan
Assessment / Plan
Physical Exam
General: Other (58y M in no acute distress.)
HEENT: Moist mucous membranes and PERRLA
Respiratory: Clear; No Wheezes, Rales or Rhonchi
Cardiac: S1/S2, Regular Rhythm and Murmur (III/ TAJ)
GI: Soft, Non Tender, Non Distended and Normal Bowel Sounds
Musculoskeletal: No Clubbing, No Cyanosis and No Edema
Neuro: AO x 3
A/P: Patient is a 58y M with PMH significant for hypertension and DM-II who presents to ED complaining of SOB for the past 3 days.
#Nonischemic myocardial injury
#Nonischemic cardiomyopathy
#HFrEF
#Valvular abnormalities
� Possibly secondary to severe aortic stenosis/bicuspid aortic valve
�Left ventricular ejection fraction is 40-45%
-No significant CAD
� CT surgery consulted
�GDMT currently limited due to lower blood pressures
Continue SGLT2�I
� Appears euvolemic
#Severe Aortic Stenosis
-CT surgery planning for surgical AVR Tuesday,
#HFpEF
-started on januvia
-hct held, can restart most likely tomorrow
#pSVT
-bb on hold due to hypotension
-ctm on tele
DM-II, Uncontrolled
-a1c - 9.8
-DM educator consulted
-has been noncompliant
-Januvia 100 mg and Farxiga 10 mg
-1800 calorie diet recommended.
- Contour Next Gen meter and instructed with good return demonstration. Recommended test BID when discharged and report to primary care doctor
Benign Hypertension
- Currently borderline hypotensive.
- Hold lisinopril / HCT for now.
- Adjust med regimen for BP control and to include GDMT prior to discharge.
#Hyperlipidemia
� Continue statin
#Ascending aorta, dilated
� 4 cm
� Continue monitoring outpatient
DVT Prophylaxis: On therapeutic heparin
Code Status: Full
Total time spent on today's encounter was 52 minutes which included time spent in counseling the patient/family regarding diagnosis and treatment plan as listed above, goals of care, and symptom management. Case was discussed with nursing staff,
specialists, and care coordinators/case management. All labs and imaging personally reviewed by me. Remainder the time spent in detailed review of previous records, lab data, imaging, and other medical provider documentation.
Anticipated Discharge: > 48 hours
Subjective/Interval History
-
Date of Service: August 31, 2023
clean cath - plan for aortic valve replacement tuesday
Objective Data
-
Labs:
Laboratory Results
08/31/23
03:46
PT 14.8 H
INR 1.18
APTT 32.3
Sodium 138
Potassium 4.5
Chloride 106
Carbon Dioxide 25
BUN 21 H
Creatinine 0.9
Glucose 154 H
Calcium 9.0
Total Bilirubin 0.5
AST 28
ALT 28
Alkaline Phosphatase 60
Vital Signs:
Vital Signs
Temp Pulse Resp BP Pulse Ox
98.6 F 86 18 104/75 98
08/31/23 11:06 08/31/23 12:00 08/31/23 07:50 08/31/23 11:06 08/31/23 11:06
I&O
08/30/23 08/31/23 09/01/23
06:59 06:59 06:59
Intake Total 600 / 600 600 / 600 120 / 120
Output Total 500 / 500
Balance 600 / 600 100 / 100 120 / 120
Review of Systems
-
History Source: Patient
All other systems: Not reviewed unless documented
Data Reviewed
-
Diagnostic Radiology: Image personally visualized and interpreted and Report Reviewed by me
Medical Tests (Nuc Med, Echo etc): Report Reviewed by me
Labs: Labs Reviewed by me
[2023-08-31 17:30] LABS: Glucose - Point of Care 274 mg/dl (70-99)
[2023-08-31] MEDS: NOVOLOG FLEXPEN-MODERATE RESISTANCE 5 UNITS SC (17:52)
[2023-08-31] MEDS: LIPITOR 80 MG PO (17:53)
--- NOTE | 2023-08-31 20:21 | PTCARENOTE ---
pt resting in bed at change of shift. plan of care discussed- pt verbalized understanding. R radial dressing removed. site CDI. + pulse. SR on the monitor. lots of education and emotional support provided for plans on AVR on Tuesday.
[2023-08-31 21:56] LABS: Glucose - Point of Care 172 mg/dl (70-99)
[2023-09-01] VITALS (8 sets, daily range): BP systolic 109–139; BP diastolic 73–100
[2023-09-01 04:45] LABS: Blood Urea Nitrogen 17 mg/dl (9-20); Calcium 9.3 mg/dl (8.4-10.2); Carbon Dioxide 23 mmol/L (22-30); Chloride 106 mmol/L (98-107); Estimated Creatinine Clearance 106 ml/min; Glucose 126 mg/dl (70-99); Potassium 3.9 mmol/L (3.5-5.1); Sodium 137 mmol/L (135-145); eGFR > 60.00
--- NOTE | 2023-09-01 06:27 | W.PN.UPDATE ---
Update Note
Progress Note Update
Ongoing pre-operative surgical work up. Tentative surgical date is Saturday September 02, [address] Parnell
Patient reports that he prefers tissue AVR.
[2023-09-01 08:01] LABS: Glucose - Point of Care 149 mg/dl (70-99)
[2023-09-01] MEDS: NOVOLOG FLEXPEN-MODERATE RESISTANCE SC ×3 (08:01→17:41)
[2023-09-01] MEDS: LOW STRENGTH ASPIRIN 81 MG PO (08:01)
[2023-09-01] MEDS: FARXIGA 10 MG PO (08:01)
[2023-09-01] MEDS: JANUVIA 100 MG PO (08:01)
[2023-09-01] MEDS: HEPARIN 5000 UNITS SC ×3 (08:02→23:07)
[2023-09-01] MEDS: FLUSH (NSS) 1 FLUSH IV (08:02)
--- NOTE | 2023-09-01 08:11 | PTCARENOTE ---
Received patient this morning oob ambulating in his room. Offers no complaints, awaiting surgery tomorrow.
--- NOTE | 2023-09-01 08:43 | PN.DE.MGMTRT ---
Insulin Management
- -
09/01/2023 Diabetes Management Consult Follow up
Patient admitted 08/28 with increasing SOB. PMH HTN, HCL, valvular disease, aortic stenosis, obesity, type 2 diabetes 12 years. Prior to admission was taking Janumet 100/1000. A1C 9.8%, cr .8, eGFR > 60.
Spoke with patients 08/29 who states he has not taken care of his diabetes. States initially he had a meter but has not used it in years, has not followed diet.
Cardiac cath 08/29.
CM has researched Farxiga, patient can use copay card for 0$ copay.
Patient is awake alert and oriented resting in bed. Able to discuss diabetes management.
Glucose 08/30 154 to 274; fasting this AM improved 126 venous 149 POC.
Januvia 100 mg and Farxiga 10 mg started. 1800 calorie diet.
08/30 Provided Contour Next Gen meter and instructed with good return demonstration. Recommended test BID when discharged and report to primary care doctor.
Patient possible for OR Tuesday for AVR
Will follow
Diabetes History
- -
Type of Diabetes: 2
Pre-Admission Diabetes Regimen
09/01/23
03:38
Creatinine 0.8
Lab Results
Hemoglobin A1c 9.8 % (4.0-5.6) H 08/29/23 21:27
Insulin Pump Settings
IP Diabetes Regimen
08/31/23 08/31/23 08/31/23
11:15 17:28 21:55
Glucose
POC Glucose 205 H 274 H 172 H
09/01/23 09/01/23
03:38 08:00
Glucose 126 H
POC Glucose 149 H
Meal type: Lunch
Amount consumed: 100%
Patient Education
--- NOTE | 2023-09-01 09:09 | W.PN.HOSP.TC ---
Addendum entered and electronically signed by Yoel Smith MD 09/04/23 15:07:
Chronic HFpEF
Original Note:
Today's Communication/Plan
-
monitor BP, add BB if needed
Cont Farxiga
glucose control
pre-op surgical work up
NPO tonight for tentative plan for surgical AVR Friday 09/01
Assessment / Plan
Assessment / Plan
Physical Exam
General: Other (58y M in no acute distress.)
HEENT: Moist mucous membranes and PERRLA
Respiratory: Clear; No Wheezes, Rales or Rhonchi
Cardiac: S1/S2, Regular Rhythm and Murmur (III/ TAJ)
GI: Soft, Non Tender, Non Distended and Normal Bowel Sounds
Musculoskeletal: No Clubbing, No Cyanosis and No Edema
Neuro: AO x 3
A/P: Patient is a 58y M with PMH significant for hypertension and DM-II who presents to ED complaining of SOB for the past 3 days.
#Nonischemic myocardial injury
#Nonischemic cardiomyopathy
#HFrEF
#Valvular abnormalities
� Possibly secondary to severe aortic stenosis/bicuspid aortic valve
�Left ventricular ejection fraction is 40-45%
-No significant CAD
� CT surgery consulted
�GDMT currently limited due to lower blood pressures
Continue SGLT2�I
� Appears euvolemic
#Severe Aortic Stenosis
-CT surgery planning for surgical AVR Tuesday,
#HFpEF
-started on januvia
-hct held, can restart most likely tomorrow
#pSVT
-bb on hold due to hypotension
-ctm on tele
DM-II, Uncontrolled
-a1c - 9.8
-DM educator consulted
-has been noncompliant
-Januvia 100 mg and Farxiga 10 mg
-1800 calorie diet recommended.
- Contour Next Gen meter and instructed with good return demonstration. Recommended test BID when discharged and report to primary care doctor
Benign Hypertension
- Currently borderline hypotensive.
- Hold lisinopril / HCT for now.
- Adjust med regimen for BP control and to include GDMT prior to discharge.
#Hyperlipidemia
� Continue statin
#Ascending aorta, dilated
� 4 cm
� Continue monitoring outpatient
DVT Prophylaxis: On therapeutic heparin
Code Status: Full
Anticipated Discharge: > 48 hours
Subjective/Interval History
-
Date of Service: September 01, 2023
No acute vents overnight
Objective Data
-
Labs:
Laboratory Results
09/01/23
03:38
Sodium 137
Potassium 3.9
Chloride 106
Carbon Dioxide 23
BUN 17
Creatinine 0.8
Glucose 126 H
Calcium 9.3
Vital Signs:
Vital Signs
Temp Pulse Resp BP Pulse Ox
98.2 F 90 20 120/79 96
09/01/23 06:47 09/01/23 07:00 09/01/23 06:47 09/01/23 06:47 09/01/23 06:47
I&O
08/31/23 09/01/23 09/02/23
06:59 06:59 06:59
Intake Total 600 / 600 480 / 480
Output Total 500 / 500
Balance 100 / 100 480 / 480
Review of Systems
-
History Source: Patient
All other systems: Not reviewed unless documented
Data Reviewed
-
Diagnostic Radiology: Image personally visualized and interpreted and Report Reviewed by me
Medical Tests (Nuc Med, Echo etc): Report Reviewed by me
Labs: Labs Reviewed by me
[2023-09-01 11:44] LABS: Glucose - Point of Care 136 mg/dl (70-99)
--- NOTE | 2023-09-01 11:59 | CM ---
spoke to pt in room, we discussed preop AVR teaching including sternal and driving restrictions, he is prev indep, lives with his in a 2 story home with 6 steps to enter. he denies any dme's. he is agreeable to a f/u visit from the CT
Transitional care nurses after dc. plan is for AVR tomorrow am, cm role explained and all questions answered. cm to follow.
--- NOTE | 2023-09-01 14:52 | W.PN.CD ---
Addendum entered and electronically signed by Aniket Chavez MD 09/01/23 17:41:
I saw and examined the patient.
The FINISH MENDER's note was reviewed and I agree with the note.
Remained stable. Lungs clear. Awaiting surgery tomorrow.
Original Note:
Today's Communication / Plan
-
-Seems to be doing well without complaint. Plan is for surgical AVR tomorrow. Follow telemetry and BP's.
Impression / Plan
-
BACKGROUND: 58M with HTN, HLD, NIDDM, and aortic stenosis who presented with a chief complaint of shortness of breath
Severe :
-echo 08/30/23: EF 40-45% by Zuniga's method of discs. Global hypokinesis. Bicuspid aortic valve with severe aortic stenosis. Mild aortic regurgitation. Mildly dilated ascending aorta at 4.0 cm. Mild pulmonary hypertension.
-cardiac cath: 1: Known severe aortic stenosis/bicuspid aortic valve 2: No significant CAD
-CT surgery planning for surgical AVR tomorrow
NICM:
-EF as above
-GDMT has been limited by low BP, which has improved today- add on post-op when tolerated. Continue SGLT2 inhibitor.
-does not appear volume overloaded to assessment
Abnormal troponin:
-trop as high as 2.3
-suspect type II ME in setting of severe aortic valve disease
-echo as above
pSVT:
-brief, noted on tele. None further. Occasional PVC's.
-currently off his typical BP meds with low BP's
-follow telemetry
HTN:
-stable
-monitor
HLD:
LDL 67:
-continue statin
Mildly dilated ascending aorta, 4.0cm
Type II DM, uncontrolled, Hgba1c 9.8%:
-diabetic FINISH MENDER and hospitalists following
Former smoker, continued cessation recommended
Physical Exam
Vital Signs/Labs
Vital Signs
Temp Pulse Resp BP Pulse Ox
98.5 F 91 18 122/86 95
09/01/23 11:37 09/01/23 12:00 09/01/23 11:37 09/01/23 11:38 09/01/23 11:37
08/29/23 19:36
09/01/23 03:38
PT 14.8 Sec (11.4-14.6) H 08/31/23 03:46
INR 1.18 08/31/23 03:46
APTT 32.3 Sec (23.4-35.0) 08/31/23 03:46
Magnesium 2.0 mg/dl (1.6-2.3) 08/31/23 03:46
Triglycerides 122 mg/dl (10-149) 08/30/23 03:39
LDL Cholesterol, Calc 67 mg/dl 08/30/23 03:39
VLDL Cholesterol, Calc 24 mg/dl (0-30) 08/30/23 03:39
HDL Cholesterol 30 mg/dl 08/30/23 03:39
LAB Results
08/29/23 08/29/23 08/30/23
19:36 22:48 03:39
Troponin I 1.110 H* 1.620 H* D 2.280 H* D
08/30/23 08/30/23 08/30/23
05:13 11:10 11:13
Troponin I Cancelled 1.600 H* D Cancelled
08/30/23 08/30/23
15:30 17:15
Troponin I Cancelled Cancelled
Physical Exam
Constitutional: No acute distress
EENT: Anicteric
Cardiovascular: Rhythm & rate is regular and Systolic murmur present
Respiratory: Respiratory effort normal and Lungs clear to auscul.
GI: Soft, Non tender and Normal bowel sounds
Neuro/Psych: AO x 3
Other: Skin (warm and dry)
Data Reviewed
-
Date of Service: September 01, 2023
EKG: Other (telemetry SR/ST occasional PVC's)
Labs: Labs Reviewed by me
[2023-09-01 16:39] LABS: Glucose - Point of Care 141 mg/dl (70-99)
[2023-09-01] MEDS: LIPITOR 80 MG PO (17:06)
--- NOTE | 2023-09-01 17:40 | W.PN.UPDATE ---
Addendum entered and electronically signed by Papi Parnell MD 09/02/23 06:20:
CARDIAC SURGERY ATTENDING:
I had a long meeting with Mr. Maxim Segura at bedside. We discussed his pathology once again, reviewed the proposed operative interventions, discussed the periprocedural risks (including, but not limited to, , stroke, [place], arrhythmia, PPM
requirement, PNA, OLIVA/F, bleeding, and infection), the expected in-hospital postprocedural course, and expected outpatient recovery. All questions were answered to the best my abilities. The patient is agreeable to proceed. He prefers a biologic
aortic valve replacement. We have had extensive discussions about the to various valve types and their pros/cons. I have reviewed his CT chest, and believe that a minimally invasive approach to his surgery will be possible. He is also aware that
there is a small potential that we will need to convert to a more traditional approach.
Thank you for allowing me to participate in the care of this kind patient.
Papi Parnell MD
[phone]
Original Note:
Update Note
Progress Note Update
Procedure Type:�Isolated AVR
PERIOPERATIVE OUTCOME ESTIMATE %
Operative Mortality 0.951%
Morbidity & Mortality 5.84%
Stroke 0.78%
Renal Failure 0.683%
Reoperation 3.04%
Prolonged Ventilation 2.94%
Deep Sternal Wound Infection 0.046%
Long Hospital Stay (>14 days) 3.25%
Short Hospital Stay (<6 days)* 59.1%
Clinical Summary
Planned Surgery: Isolated AVR, Urgent, First cardiovascular surgery
Demographics: 58 year old, White, male, 92kg, 180cm, BMI: 28.4 kg/m�
Lab Values: Creatinine: 0.9 mg/dL, Hematocrit: 37.5%, WBC Count: 9.8 10�/�L, Platelet Count: 524336 cells/�L
PreOp Medications: Oral diabetes control
Substance Abuse: Former smoker, Alcohol use: <=1 drink/week
Risk Factors / Comorbidities: Diabetes Mellitus
Cardiac Status: Ejection Fraction = 40%
Coronary Artery Disease: No coronary symptoms
Valve Disease: Aortic Stenosis
[2023-09-01 22:37] LABS: Glucose - Point of Care 168 mg/dl (70-99)
[2023-09-02] VITALS (17 sets, daily range): BP systolic 96–131; BP diastolic 47–96
--- NOTE | 2023-09-02 01:50 | PTCARENOTE ---
Pt received at start of shift, HR SR w/ BBB and PVCs. CVOR prep #1 completed, pt clipped and then showered w/ CHG. New gown, linens, BP cuff. Bed wiped down.
[2023-09-02 05:47] LABS: Hematocrit 38.1 % (39.0-52.0); Hemoglobin 13.5 g/dL (13.0-18.0); Mean Corp Hgb Conc. 35.4 g/dL (33.0-37.0); Mean Corpuscular Hgb 28.7 pg (27.0-31.0); Mean Corpuscular Volume 81.1 fL (80.0-94.0); Mean Platelet Volume 9.6 fL (7.4-10.4); Platelet Count 193 10^3/uL (130-400); Red Cell Dist. Width 12.8 % (11.5-14.5); White Blood Cell Count 6.2 10^3/uL (4.8-10.8)
[2023-09-02 06:03] LABS: Blood Urea Nitrogen 16 mg/dl (9-20); Calcium 9.5 mg/dl (8.4-10.2); Carbon Dioxide 23 mmol/L (22-30); Chloride 105 mmol/L (98-107); Estimated Creatinine Clearance 106 ml/min; Glucose 139 mg/dl (70-99); Potassium 3.9 mmol/L (3.5-5.1); Sodium 139 mmol/L (135-145); eGFR > 60.00
[2023-09-02] MEDS: MAGNESIUM OXIDE 500 MG PO (06:03)
[2023-09-02] MEDS: PROTONIX 40 MG PO (06:03)
[2023-09-02] MEDS: LOPRESSOR 25 MG PO (06:04)
[2023-09-02] MEDS: BACTROBAN 2% OINTMENT 1 APPLIC NASAL ×2 (06:06→20:08)
[2023-09-02 06:10] LABS: Glucose - Point of Care 138 mg/dl (70-99)
--- NOTE | 2023-09-02 06:20 | W.CVOR.SURPR ---
CVOR Surgeon Immed Pre Op
-
I have examined this patient prior to performance of the scheduled procedure.
The patient's condition is unchanged from the time of the dictated/written History and
Physical and the patient is able to undergo the scheduled procedure.
[2023-09-02 07:08] LABS: ACT+ - POC 90 Seconds (82-134)
[2023-09-02 07:10] LABS: B.E. - POC -4.2 mmol/L; Glucose - POC 137 mg/dl (65-99); HCO3 - POC 20 mmol/L (21-29); Hematocrit - POC 34 % PCV (42-52); Hemodilution- POC No; Hemoglobin Calculated - POC 11.6; Ionized Calcium - POC 1.13 mmol/L (1.12-1.27); O2 Saturation %Calculated-POC 99.9 5 (92-96); PCO2 - POC 33 mmHg (35-45); PO2 - POC 291 mmHg (80-100); POC Comment BASELINE; Potassium - POC 3.5 mmol/L (3.6-5.0); Sodium - POC 140 mmol/L (135-145); pH - POC 7.39 (7.35-7.45)
[2023-09-02 07:20] LABS: Urine Albumin Negative (Neg - Trace); Urine Bilirubin Negative (Negative); Urine Character Clear (Clear); Urine Color Yellow; Urine Glucose 3+ (Negative); Urine Ketone 3+ (Negative); Urine Leukocyte Negative (Negative); Urine Nitrite Negative (Negative); Urine Occult Blood 1+ (Negative); Urine Specific Gravity 1.015 (<1.030); Urine Urobilinogen Negative (Neg - 1+)
[2023-09-02 07:43] LABS: Urine Bacteria Few (Negative)
--- NOTE | 2023-09-02 08:10 | PN.DE.MGMTRT ---
Insulin Management
- -
09/02/2023: Diabetes Management F/U:
Patient admitted 08/28 with increasing SOB. PMH: HTN, HCL, valvular disease, , Obesity, T2DM x12 years.
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 A1C 9.8%, cr .8, eGFR > 60. reports that pt has not taken care of his diabetes. States initially he had a meter but has not used it in years, has not followed diet. Cardiac cath 08/29.
CM has researched Farxiga, patient can use copay card for 0$ copay.
Patient is not available at this time. He has been NPO for OR since SD.
Glucose 08/31 136 to 149; HS 168, fasting this AM 139(V) 149 POC.
Plan to initiate critical care glycemic protocol post-op x48 hrs.
Resume oral regimen at transition: Januvia 100 mg and Farxiga 10 mg.
08/30 Provided Contour Next Gen meter and instructed with good return demonstration.
Recommended test BID when discharged and report to primary care doctor. Will follow
Diabetes History
- -
Type of Diabetes: 2 requiring insulin
Pre-Admission Diabetes Regimen
09/02/23
05:36
Creatinine 0.8
Lab Results
Hemoglobin A1c 9.8 % (4.0-5.6) H 08/29/23 21:27
Insulin Pump Settings
IP Diabetes Regimen
09/01/23 09/01/23 09/01/23
11:43 16:38 22:36
Glucose
POC Glucose 136 H 141 H 168 H
09/02/23 09/02/23
05:36 06:09
Glucose 139 H
POC Glucose 138 H
Meal type: Dinner
Meal type: Lunch
Amount consumed: 100%
Amount consumed: 100%
Patient Education
--- NOTE | 2023-09-02 08:46 | CON.INTV ---
Consultation
Consultation Request
Date/Time Consultation Requested: 09-02-23
Date/Time Consultation Performed: 09-02-23
Requesting Provider: Dr Parnell
Performing Provider: Dr Tarango
Reason for Consultation: s/p AVR Mech Vent
Medical History
-
[facility]
History of Present Illness:
Mr Maxim Delgado is a 58/M adm 08-28 with acute onset GUZMÁN which progressed to symptoms on mild activity. At ER, abnormal EKG, increasing trops. Seen by [facility], [facility] 08-29 confirmed known severe /bicuspid AV and no significant CAD. Seen by [facility],
prepared for surgery
Incidental finding of mediastinal LAD (5, 4R/4L) and few scattered pulm nodules (4 mm or less): noncontrasted preop CT chest 08-30, no films for comparison
Former Smoker (Quit smoking in 1980s. Total of < 10 pack years.)
Received AVR today, seen at CVICU, sedated, well synchronized to MV
Past Medical History
Past Medical History: Other (see A&P for PMH/PSH)
Social History
Tobacco: Former Smoker
Alcohol: Occasional
Drug: None
Personal:
Living: With Family
Employment: Employed
Family History
Family History: Cancer (F: colon)
Allergies / Home Medications
Allergies
Allergy/AdvReac Type Severity Reaction Status Date / Time
No Known Allergies Allergy Verified 08/29/23 23:40
Home Medications
�Medication �Instructions �Recorded �Confirmed �Last Taken �Type
lisinopril 20 1 tab PO DAILY Blood Pressure 08/29/23 08/29/23 08/29/23 History
mg-hydrochlorothiazide 12.5 mg
tablet
pravastatin 80 mg tablet 80 mg PO HS High Cholesterol 08/29/23 08/29/23 08/28/23 History
sitagliptin phos 100 mg-metformin 1 tab PO QPM Diabetes 0608/29/23 08/28/23 History
ER 1,000 mg tablet,extend rel 24h
mp (Janumet XR)
Review of Systems
-
Unable to Obtain full review of systems at this time due to: Patient Intubation
Vitals / Labs / Diagnostic Testing
Vital Signs
Temp Pulse Resp BP Pulse Ox
98.3 F 88 16 116/80 97
09/02/23 05:27 09/02/23 06:04 09/02/23 05:27 09/02/23 06:04 09/02/23 05:27
Lab Data
09/02/23 05:36
09/02/23 05:36
Diagnostic Testing:
Physical Exam
-
HEENT: Normocephalic and Moist Mucous Membranes
Cardiovascular: Regular Rhythm and Peripheral Edema (n)
Respiratory: Clear, Non-Labored Respirations and Other (chest tubes)
GI: Soft and Non Distended
Neurology: Other (sedated)
Skin: Warm
General: Respiratory Distress (n)
Assessment
-
Assessment:
Mr Maxim Delgado is a 58/M adm 08-28 with acute onset GUZMÁN which progressed to symptoms on mild activity. At ER, abnormal EKG, increasing trops. Seen by [facility], [facility] 08-29 confirmed known severe /bicuspid AV and no significant CAD. Seen by [facility],
prepared for surgery
Impression:
Severe AVR, ADRIANA 0.4 cm2
S/p AVR 09-01 (mini-upper hemisternotomy)
Incidental finding of mediastinal LAD (5, 4R/4L) and few scattered pulm nodules (4 mm or less): noncontrasted preop CT chest 08-30, no films for comparison
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
HTN
T2DM
HLD
Hernia Repair with Mesh
Lithotripsy
Former Smoker (Quit smoking in . Total of < 10 pack years.)
Plan:
Ventilator settings reviewed
SIMV: [phone] (POx 96%)
FiO2 will be weaned
Minute ventilation will be adjusted
Arterial blood gases will be monitored
Spontaneous breathing trial will be attempted with hopeful extubation after anesthesia/sedation wear off
Postop CXR: ET, RIJ SG, sternotomy wiring, chest/med tubes, no gross infiltrates
Former smoker, not on home O2 or BDs
Pulmonary artery catheter parameters will be followed
Pressors/antihypertensive/inotropes/diuretics will be provided as needed
Monitor chest tube output
Monitor hemoglobin
Monitor platelet count and coags
Transfuse blood product if needed
CT surgery following chest tubes
Incidental finding of mediastinal LAD (5, 4R) and few scattered pulm nodules (4 mm or less): noncontrasted preop CT chest 08-30, no films for comparison
Will discuss above once off MV tomorrow
Will need outpatient follow up with [facility] once recovered from surgery in 1-2 m, information left in chart
Monitor blood sugar
Insulin drip per protocol
Aspiration precautions
VAP prevention protocol
DVT prophylaxis
Early nutrition
Early mobilization
Critical care time: 35 min
D/w [facility] RN
[2023-09-02 09:00] LABS: ACT+ - POC 770 Seconds (82-134)
[2023-09-02 09:35] LABS: B.E. - POC -0.4 mmol/L; Glucose - POC 137 mg/dl (65-99); HCO3 - POC 24 mmol/L (21-29); Hematocrit - POC 27 % PCV (42-52); Hemodilution- POC Yes; Hemoglobin Calculated - POC 9.1; Ionized Calcium - POC 0.94 mmol/L (1.12-1.27); O2 Saturation %Calculated-POC 99.9 5 (92-96); PCO2 - POC 35 mmHg (35-45); PO2 - POC 317 mmHg (80-100); POC Comment CPB; Potassium - POC 4.3 mmol/L (3.6-5.0); Sodium - POC 138 mmol/L (135-145); pH - POC 7.44 (7.35-7.45)
[2023-09-02 09:40] LABS: ACT+ - POC 628 Seconds (82-134)
[2023-09-02] MEDS: NOVOLOG FLEXPEN-MODERATE RESISTANCE SC ×2 (09:44→13:44)
[2023-09-02] MEDS: HEPARIN SC (09:44)
[2023-09-02] MEDS: LOW STRENGTH ASPIRIN PO (09:44)
--- NOTE | 2023-09-02 10:02 | CM ---
Reviewed chart. Mr. Delgado is in the operating room today. Prior to admission he resides with his spouse in a two story home with six steps to enter. Prior to admission he was independent with ambulation and adls. He does not have any DME.
Medical work-up in progress. The discharge plan is to return home with his spouse and a home visit by the Cardiothoracic Transitional Care Nurse when medically stable.
[2023-09-02 10:07] LABS: ACT+ - POC 550 Seconds (82-134)
[2023-09-02 10:09] LABS: B.E. - POC -1.2 mmol/L; Glucose - POC 123 mg/dl (65-99); HCO3 - POC 23 mmol/L (21-29); Hematocrit - POC 32 % PCV (42-52); Hemodilution- POC Yes; Hemoglobin Calculated - POC 10.8; Ionized Calcium - POC 1.06 mmol/L (1.12-1.27); O2 Saturation %Calculated-POC 99.8 5 (92-96); PCO2 - POC 34 mmHg (35-45); PO2 - POC 224 mmHg (80-100); POC Comment CPB; Potassium - POC 4.2 mmol/L (3.6-5.0); Sodium - POC 139 mmol/L (135-145); pH - POC 7.44 (7.35-7.45)
[2023-09-02 10:33] LABS: Glucose - POC 123 mg/dl (65-99); HCO3 - POC 23 mmol/L (21-29); Hematocrit - POC 30 % PCV (42-52); Hemodilution- POC Yes; Hemoglobin Calculated - POC 10.2; Ionized Calcium - POC 1.02 mmol/L (1.12-1.27); O2 Saturation %Calculated-POC 99.9 5 (92-96); PCO2 - POC 36 mmHg (35-45); PO2 - POC 268 mmHg (80-100); POC Comment CPB; Sodium - POC 140 mmol/L (135-145); pH - POC 7.42 (7.35-7.45)
[2023-09-02 10:35] LABS: ACT+ - POC 536 Seconds (82-134)
[2023-09-02 11:02] LABS: Glucose - POC 141 mg/dl (65-99); HCO3 - POC 23 mmol/L (21-29); Hematocrit - POC 30 % PCV (42-52); Hemodilution- POC Yes; Hemoglobin Calculated - POC 10.4; Ionized Calcium - POC 1.06 mmol/L (1.12-1.27); O2 Saturation %Calculated-POC 99.9 5 (92-96); PCO2 - POC 37 mmHg (35-45); PO2 - POC 282 mmHg (80-100); POC Comment CPB; Potassium - POC 4.7 mmol/L (3.6-5.0); Sodium - POC 140 mmol/L (135-145)
[2023-09-02 11:04] LABS: ACT+ - POC 488 Seconds (82-134)
[2023-09-02 11:17] LABS: ACT+ - POC 489 Seconds (82-134)
[2023-09-02 11:27] LABS: Glucose - POC 140 mg/dl (65-99); HCO3 - POC 25 mmol/L (21-29); Hematocrit - POC 33 % PCV (42-52); Hemodilution- POC Yes; Hemoglobin Calculated - POC 11.1; Ionized Calcium - POC 1.06 mmol/L (1.12-1.27); O2 Saturation %Calculated-POC 99.9 5 (92-96); PCO2 - POC 41 mmHg (35-45); PO2 - POC 269 mmHg (80-100); POC Comment WARM; Potassium - POC 4.3 mmol/L (3.6-5.0); Sodium - POC 141 mmol/L (135-145); pH - POC 7.39 (7.35-7.45)
[2023-09-02 11:29] LABS: ACT+ - POC 555 Seconds (82-134)
[2023-09-02 11:52] LABS: B.E. - POC -2.2 mmol/L; Glucose - POC 136 mg/dl (65-99); HCO3 - POC 23 mmol/L (21-29); Hematocrit - POC 30 % PCV (42-52); Hemodilution- POC Yes; Hemoglobin Calculated - POC 10.3; Ionized Calcium - POC 1.96 mmol/L (1.12-1.27); O2 Saturation %Calculated-POC 99.9 5 (92-96); PCO2 - POC 39 mmHg (35-45); PO2 - POC 341 mmHg (80-100); POC Comment CPB; Potassium - POC 4.7 mmol/L (3.6-5.0); Sodium - POC 141 mmol/L (135-145); pH - POC 7.38 (7.35-7.45)
[2023-09-02 11:52] LABS: ACT+ - POC 477 Seconds (82-134)
[2023-09-02 12:20] LABS: ACT+ - POC 96 Seconds (82-134)
[2023-09-02 12:20] LABS: B.E. - POC -2.4 mmol/L; Glucose - POC 140 mg/dl (65-99); HCO3 - POC 22 mmol/L (21-29); Hematocrit - POC 29 % PCV (42-52); Hemodilution- POC Yes; Hemoglobin Calculated - POC 9.8; Ionized Calcium - POC 1.22 mmol/L (1.12-1.27); O2 Saturation %Calculated-POC 99.2 5 (92-96); PCO2 - POC 37 mmHg (35-45); PO2 - POC 143 mmHg (80-100); POC Comment POST; Potassium - POC 4.1 mmol/L (3.6-5.0); Sodium - POC 141 mmol/L (135-145); pH - POC 7.39 (7.35-7.45)
--- NOTE | 2023-09-02 12:41 | W.IMMPOSTOP ---
Addendum entered and electronically signed by Papi Parnell MD 09/02/23 14:17:
[id number]
Original Note:
Surgical Immed Post Op Note
-
CARDIAC SURGERY OPERATIVE NOTE:
Preoperative Dx:
[id number] w/ P/M 97/69 w/ ADRIANA 0.4 cm2, mild AI
Reduced LVEF @ 40-45%
Mild dilation of ascending aorta (4.0cm)
No CAD
Postoperative Dx:
Same
True BAV
Procedures:
1) Open exposure of L CFV
2) Mini-upper 'J-type' hemisternotomy (R 3rd ICS)
3) AVR (#27 Inspiris)
Surgeon:
Papi Parnell M.D.
Assistants:
Minor Augustin-Veronica; first line supervisor throughout
Tony Valencia P.A.-C.; open exposure of R CFV
Anesthesia:
Anastacio Chappell M.D. and Austin Styles, C.R.N.A.
Perfusion:
Peña DeckerPHeidi; XC: 138, CPB 158
Findings:
True BAV w/ complete fusion of the RCC and NCC
Only two commissural attachments
Profound valvular, annular, and subvalvular calcifications
Aortic wall was normal thickness and aorta appearance was grossly normal despite minor dilation
#27 Inspiris valve secured w/ 16 interrupted, pledgetted valve sutures & CorKnots
Valve rotated to assure LM and RM coronary ostia were at branden of cusps
Post-LORIN: Well-seated AVR w/o PVL/AI, mean gradient 4mmHg; LVEF 40-45% (unchanged biventricular function)
Implants:
Epicardial V-wire x 1
[employer], Inspiris Resilia AVR (27mm); SN [id number]
CT x 2 (mediastinal, right pleural/mediastinal)
Sternal wires x 3
Sternal 'X' plate and 8 - 12mm screws
Transfusions:
None
Complications:
None
Condition:
78 sinus w/ isoelectric STs. 97/52. 37/23. CVP 16. 98%. CO/CI: 5.0/2.4
GTTS: dobutamine 3, levophed 4, precedex 0.6, insulin 1
Stable/guarded to CVICU
[2023-09-02] MEDS: NOVOLOG FLEXPEN SC ×2 (12:46→14:24)
[2023-09-02] MEDS: NEURONTIN PO (12:46)
--- NOTE | 2023-09-02 13:10 | PTCARENOTE ---
Pt received from [facility] at 1310. Pt intubated and sedated on precedex gtt. Pt unresponsive. POX 98%. 8.0 ETT 24cm at the lip. SIMV 60% 14 550 5/5. Pt not breathing over the vent at this time. Lungs clear throughout. Scant amount of clear oral
secretions. Mediastinal chest tubes x2 y-sited to 1 atrium to -20cm suction draining red fluid. No air leaks, tidaling, or crepitus noted. NSR with prolonged QT with rates in the 70s. BP supported with levophed, titrating to maintain MAP >65.
Bilateral radial and DP pulses palpable. No edema noted. PA pressures 30s/10s. CVP 10. CI 2.42, Dobutamine titrated per CT ELECTRICIAN ASSISTANT to 2mcg/kg/min. Epicardial v-wire intact, box turned off. Abdomen soft, nontender. Hypoactive BS. Delgado catheter intact
draining robyn with blood tinged urine, adequate amounts. Sternal incision covered with Aquacel-CDI. Chest tube sites covered-CDI. Right groin incision approximated with skin glue-KARYNA. Right IJ cordis and swan floated to 47cm. Left radial day
intact. All lines flushed, leveled, and zeroed with appropriate waveforms. Right forearm 20g PIV intact with insulin infusing per Critical Care Glycemic Protocol. Left AC 18g PIV intact. See MAR for medication administration. See worklist for
complete nursing assessment. Post op EKG, labs, and CXR completed.
[2023-09-02 13:13] LABS: Glucose - Point of Care 136 mg/dl (70-99)
--- NOTE | 2023-09-02 13:16 | W.PN.UPDATE ---
Update Note
Progress Note Update
58-year-old male was admitted 08/29/23 with exertional dyspnea and palpitations. A TTE on 08/30/2023 reported reduced LV ejection fraction (40-45%) with bicuspid aortic valve and severe aortic stenosis. Troponin elevation due to demand ischemia from
bicuspid aortic valve with critical aortic stenosis. Cardiac catheterization performed 08/29, reports mild luminal irregularities of all coronaries. Hemoglobin A1c was 9.8, and diabetes management team is following for medication adjustment.
Janumet is on hold status post cardiac cath.
IV fluids: 1500
U.O.:� 700
Blood:� none
Wires:� bipolar V-wire
Inotropes:� Dobutamine @ 3
Pressors:� Levophed @ 4
Sedatives:� Precedex @ 0.6
�
NEURO: sedated on Precedex, pupils +2mm B/L
RESP: #8OT @24cm> 550/80%/14/5. Lungs clear B/L. 2 mediastinal (10cc on arrival) chest tubes to -20cm suction. Sanguineous drainage
CV: RRR +S1, S2, no S3, no�rub, no murmur. Dermabond to median sternotomy. RIJ w/[place] locked @ 48cm. PA 31.15; CVP 11; C.O 5.14/CI 2.42
ABD: round, soft, no BS
EXT: no edema, +2/4 DP pulses B/L, right femoral cannulation site w/o bleeding/hematoma; no femoral bruit, left radial A-line intact
: Delgado with pink tinged urine
�
A/P: POD #0 s/p AVR #27mm Inspiris
LORIN: EF�40-45%; AV mean gradient 4mmHg (on Dobutamine)
- wean and extubate
- will need instruction regarding antibiotic prophylaxis for dental and invasive procedures
�
# acute surgical blood loss anemia-expected
- trend CBC
�
# T2DM (A1C 9.8)
- insulin infusion x 48h
- transition to Janumet 100mg daily and Farxiga 10mg daily
�
# Hyperlipidemia
- resume�Pravasttain
[2023-09-02 13:22] LABS: B.E. 0.1 mmol/L; HCO3 24.7 mmol/L (21-28); Hematocrit 30.1 % (39.0-52.0); Hemoglobin 10.2 g/dL (13.0-18.0); Ionized Calcium 1.13 mMOL/L (1.15-1.33); O2 Saturation % 99.1 % (94-98); PCO2 39 mmHg (35-48); PO2 99 mmHg (83-108); Platelet Count 103 10^3/uL (130-400); Potassium 4.2 mMOL/L (3.5-5.1); Sodium 140 mMOL/L (136-145); pH 7.41 (7.35-7.45)
[2023-09-02 13:37] LABS: Blood Urea Nitrogen 18 mg/dl (9-20); Estimated Creatinine Clearance 121 ml/min; Glucose 125 mg/dl (70-99); INR 1.77; Magnesium 3.1 mg/dl (1.6-2.3); PT 20.4 Sec (11.4-14.6)
[2023-09-02 13:38] LABS: APTT 36.8 Sec (23.4-35.0)
[2023-09-02] MEDS: NSS 500 IV (13:43)
[2023-09-02] MEDS: CALCIUM CHLORIDE 10% SYRINGE 50 ML IV (13:43)
[2023-09-02] MEDS: ANCEF 10 IV ×2 (13:43)
[2023-09-02] MEDS: TYLENOL PO (13:43)
[2023-09-02] MEDS: CALCIUM CHLORIDE 10% SYRINGE 50 MG IV (13:43)
[2023-09-02 14:05] LABS: Glucose - Point of Care 134 mg/dl (70-99)
--- NOTE | 2023-09-02 14:45 | PTCARENOTE ---
Pt awakes easily. Able to follow commands to wiggle toes, squeeze hands, and lift head off pillow. Able to nod head yes/no appropriately. RT notified and at bedside to place pt on cpap trial. pt tolerating POX 97%.
[2023-09-02 14:55] LABS: Glucose - Point of Care 112 mg/dl (70-99)
[2023-09-02 15:21] LABS: B.E. -1.6 mmol/L; HCO3 22.9 mmol/L (21-28); Ionized Calcium 1.24 mMOL/L (1.15-1.33); O2 Saturation % 96.7 % (94-98); PCO2 37 mmHg (35-48); PO2 96 mmHg (83-108); Potassium 4.1 mMOL/L (3.5-5.1)
--- NOTE | 2023-09-02 15:30 | PTCARENOTE ---
CPAP ABG sent and within parameters for extubation. RT at bedside to extubate. Pt tolerated POX 95% on 6L NC. Pt oriented x4. IS completed 750mL achieved. Pt bathed with CHG wipes and turned from side to side, no significant dumps from chest tubes
after turning. pt tolerated. Pt denies pain and nausea. Family notified.
--- NOTE | 2023-09-02 15:45 | RESPNOTE ---
1530 patient extubated to 6 liter NC at this time without incident SAT 96% HR 56 IS done by RN 750mL
[2023-09-02 16:13] LABS: Glucose - Point of Care 107 mg/dl (70-99)
[2023-09-02] MEDS: PACERONE 200 MG PO (16:32)
[2023-09-02] MEDS: NEURONTIN 300 MG PO ×2 (16:32→21:56)
[2023-09-02] MEDS: ROXICODONE 5 MG PO ×2 (16:32→20:33)
[2023-09-02] MEDS: LOW STRENGTH ASPIRIN 81 MG PO (16:35)
[2023-09-02 17:08] LABS: Glucose - Point of Care 112 mg/dl (70-99)
[2023-09-02 17:19] LABS: Hematocrit 30.8 % (39.0-52.0); Hemoglobin 10.8 g/dL (13.0-18.0); Platelet Count 170 10^3/uL (130-400)
[2023-09-02 19:03] LABS: Glucose - Point of Care 92 mg/dl (70-99)
[2023-09-02] MEDS: LR 500 IV (19:04)
--- NOTE | 2023-09-02 20:00 | PTCARENOTE ---
Bedside walking rounds report received. Patient seen on rounds resting in bed on 4l nasal canula: decreased to 2l nasal canula. IS 750 to 1000 while awake.NSR. Temp epicardial v wire in jay jay to medtronic box for a back up rate of 50bpm: see work list
flow record for settings. NIBP's/ABP both with map's >65mmhg. Off levo. Ed Aidan Allen updated with same. CI's 2.1. Will deline early in am if patient remains hemodynamically stable. Chest tubes x 2 med's to 1 pleur evac and -20cm wall suction.
See flowrecord for remaining assessments.
[2023-09-02] MEDS: FLEXERIL 5 MG PO (20:05)
[2023-09-02] MEDS: SENOKOT-S 1 TABLET PO (20:06)
[2023-09-02] MEDS: ANCEF 5 IV (20:07)
[2023-09-02] MEDS: PRAVACHOL 80 MG PO (21:56)
[2023-09-02] MEDS: TYLENOL 1000 MG PO (21:56)
[2023-09-02 22:09] LABS: Glucose - Point of Care 110 mg/dl (70-99)
[2023-09-03] VITALS (37 sets, daily range): BP systolic 104–160; BP diastolic 52–116; PULSE 91; O2SAT 93–95; BMI 27.3
--- NOTE | 2023-09-03 | PTCARENOTE ---
No acute changes. NSR.
[2023-09-03 00:27] LABS: Glucose - Point of Care 80 mg/dl (70-99)
[2023-09-03] MEDS: ROXICODONE 5 MG PO ×3 (00:32→12:21)
[2023-09-03 02:18] LABS: Glucose - Point of Care 99 mg/dl (70-99)
--- NOTE | 2023-09-03 02:27 | PTCARENOTE ---
4 beat run NSVT. Asymptomatic: patient is awake and talking with nurse. Ed PA-c aware. Will check lytes in am and continue to closely monitor for acute rhythm changes.
--- NOTE | 2023-09-03 03:34 | W.PN.CT ---
Today's Communication / Plan
-
Plan:
-No major issues overnight. Hemodynamically and neurologically intact
-Successfully extubated on 09/01 @ 1530
-Weaned off Levophed and dobutamine, remains on insulin gtt per protocol
-Last CI 2.50, u/o since OR 1405
-Monitor chest tube output: 2 meds 70/200
-Cont. current (ASA, Amiodarone, Toprol XL, Pravachol)
-D/C'd swan and a-line @ 0515
-D/C'd schofield @ 0600
-Maintain cordis
-Maintain temporary PW (will cut before d/c home)
-Encourage use of IS
-Wean off of O2 as tolerated
-OOB into chair/Ambulate
Assessment / Plan
-
Assessment:
-S/p Open exposure of L CFV/Mini-upper 'J-type' hemisternotomy (R 3rd ICS)/ AVR (#27 Inspiris) by Dr. Parnell, 09/02/23, pod#1
-Uyxqsn-fx-grxqafoa w/ P/M 97/69 w/ ADRIANA 0.4 cm2, mild AI
-NICM (LVEF 35-40%, improved to 40-45% postop per intraop LORIN)
-Mild dilation of ascending aorta (4.0cm)
-Mild TR
-HTN
-HLD
-T2DM (A1C 9.8)
-Anemia
-Former tobacco use
-Renal calculi S/P lithotripsy
-S/p Left inguinal herniorrhaphy (30 yrs ago)
-Acute postop blood loss anemia on chronic anemia (stable without blood transfusion)
-Acute postop thrombocytopenia
-Acute postop atelectasis
-Acute postop hypovolemia with subsequent hypervolemia
Discussed patient care with: Cardiology, Nursing, Respiratory Therapy, Pharmacy and Care Team
Subjective
Procedure
S/p Open exposure of L CFV/Mini-upper 'J-type' hemisternotomy (R 3rd ICS)/ AVR (#27 Inspiris) by Dr. Parnell, 09/02/23
-
Date of Service: September 03, 2023
Pt c/o incisional pain, controlled with current analgesics, otherwise feels well
Objective Data
-
PT 20.4 Sec (11.4-14.6) H 09/02/23 13:11
INR 1.77 09/02/23 13:11
APTT 36.8 Sec (23.4-35.0) H 09/02/23 13:11
Vital Signs
Vital Signs
Temp Pulse Resp BP Pulse Ox
97.7 F 94 13 110/65 95
09/03/23 02:00 09/03/23 02:05 09/03/23 02:05 09/03/23 02:00 09/03/23 02:05
CT Intake/Output/Weight
09/02/23 09/02/23 09/03/23
06:59 18:59 06:59
Intake Total 480 / 1440 334.8 / 1152.2 817.4 / 1152.2
Output Total 895 / 1460 565 / 1460
Balance 480 / 1440 -560.2 / -307.8 252.4 / -307.8
SaO2: 95 (2L)
Physical Exam
-
General: Awake, Oriented and AOx3
Cardiovascular: Regular rate & rhythm, No Murmurs and Rub
Respiratory: Decreased Breath Sounds
Sternum: Stable
Incision: Clean, Dry, Intact and Dressing Intact
Extremities: No Edema
Data Reviewed
-
Lab Results: Results Reviewed
Medications: Active Meds Reviewed
Chest X-Ray: Report Reviewed and Image Reviewed
ECG: Report Reviewed and Image Reviewed
[2023-09-03] MEDS: ANCEF 5 IV ×2 (04:30→12:21)
[2023-09-03 04:36] LABS: Glucose - Point of Care 85 mg/dl (70-99)
[2023-09-03 04:45] LABS: Hematocrit 31.6 % (39.0-52.0); Hemoglobin 10.6 g/dL (13.0-18.0); Mean Corp Hgb Conc. 33.5 g/dL (33.0-37.0); Mean Corpuscular Volume 86.3 fL (80.0-94.0); Mean Platelet Volume 10.8 fL (7.4-10.4); Platelet Count 150 10^3/uL (130-400); Red Blood Cell Count 3.66 10^6/uL (4.70-6.10); Red Cell Dist. Width 13.2 % (11.5-14.5); White Blood Cell Count 11.9 10^3/uL (4.8-10.8)
[2023-09-03 05:00] LABS: Blood Urea Nitrogen 23 mg/dl (9-20); Calcium 8.9 mg/dl (8.4-10.2); Carbon Dioxide 20 mmol/L (22-30); Chloride 109 mmol/L (98-107); Estimated Creatinine Clearance 94 ml/min; Glucose 89 mg/dl (70-99); Magnesium 2.3 mg/dl (1.6-2.3); Potassium 4.5 mmol/L (3.5-5.1); Sodium 142 mmol/L (135-145); eGFR > 60.00
--- NOTE | 2023-09-03 05:30 | PTCARENOTE ---
Hemodynamics and labs reportrd to Ed. Tiffany BROWNE: pt delined and schofield catheter dc at 6am. Weighed and assisted oob to chair. BP 154/90: Ed PAPastorc aware.
[2023-09-03 05:49] LABS: Glucose - Point of Care 100 mg/dl (70-99)
[2023-09-03] MEDS: DILAUDID 0.25 MG IV (06:27)
[2023-09-03] MEDS: TYLENOL 1000 MG PO ×3 (06:27→21:38)
[2023-09-03 06:49] LABS: Glucose - Point of Care 106 mg/dl (70-99)
--- NOTE | 2023-09-03 07:16 | W.PN.INTV ---
Today's Communication / Plan
Recommendations
IS
[facility] appointment in 1-2 m p d/c
Reconsult prn
Assessment
-
Assessment:
Mr Maxim Delgado is a 58/M adm 08-28 with acute onset GUZMÁN which progressed to symptoms on mild activity. At ER, abnormal EKG, increasing trops. Seen by Cards, [facility] 08-29 confirmed known severe /bicuspid AV and no significant CAD. Seen by [facility],
prepared for surgery
Impression:
Severe AVR, ADRIANA 0.4 cm2
S/p AVR 09-01 (mini-upper hemisternotomy)
Incidental finding of mediastinal LAD (5, 4R/4L) and few scattered pulm nodules (4 mm or less): noncontrasted preop CT chest 08-30, no films for comparison
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
HTN
T2DM
HLD
Hernia Repair with Mesh
Lithotripsy
Former Smoker (Quit smoking in 1980s. Total of < 10 pack years.)
Plan:
Postop CXR: ET, RIJ SG, sternotomy wiring, chest/med tubes, no gross infiltrates
Extubated post surgery
CXR today: RIJ SGC, chest/med tubes, sternotomy wiring, mild L basilar atelectasis
Former remote smoker only at age 17, not on home O2 or BDs
Pressors/antihypertensive/inotropes/diuretics will be provided as needed
Monitor chest tube output
Monitor hemoglobin
Monitor platelet count and coags
Transfuse blood product if needed
CT surgery following chest tubes
Incidental finding of mediastinal LAD (5, 4R) and few scattered pulm nodules (4 mm or less): noncontrasted preop CT chest 08-30, no films for comparison
Above discussed with Mr Delgado and his kind visiting at bedside, questions answered
Will need outpatient follow up with [facility] once recovered from surgery in 1-2 m, information left in chart
Monitor blood sugar
Insulin drip per protocol
Aspiration precautions
DVT prophylaxis
Early nutrition
Early mobilization
Reconsult as needed
Subjective Dataa
Subjective Data
Date of Service:
Date of Service: September 03, 2023
Chief Complaint: Dinner Cook Follow Up
Subjective:
No major events reported overnight
Extubated with no issue post surgery
Remote h/o smoking at age 17 only
No significant occupational or environmental exposures
visiting at bedside
Review of Systems
General: Fever (n), Sweats (n), Chills and Satisfactory Appetite
HEENT: Epistaxis (n) and Dysphagia (n)
Cardiopulmonary: Dyspnea (n), Cough, Chest Pain (incisional) and Hemoptysis (n)
GI: Abdominal Pain (n), Nausea (n) and Vomiting
Neuro: Weakness (n)
Genitourinary: Hematuria (n)
Objective Data
Data Reviewed
Vital Signs / I&O / Oxygen:
Vital Signs
Temp Pulse Resp BP Pulse Ox
98 F 94 18 154/90 92
09/03/23 04:00 09/03/23 06:30 09/03/23 06:00 09/03/23 06:19 09/03/23 06:30
Intake and Output
09/02/23 09/03/23 09/04/23
06:59 06:59 06:59
Intake Total 1440 / 1440 1263.5 / 1263.5
Output Total 1725 / 1725
Balance 1440 / 1440 -461.5 / -461.5
SaO2 [CPAP/PSV] 97
SaO2 [SIMV] 98
SaO2 92
Nasal Cannula flow liters per 2
minute
Physical Exam
General: Comfortable
HEENT: Normocephalic and Moist Mucous Membranes
Cardiovascular: Regular Rhythm, Peripheral Edema (n) and Calf Tenderness (n)
Respiratory: Clear, Non-Labored Respirations, Stridor (n) and Chest Tube
GI: Soft, Non Distended and Non Tender
Neurology: Awake, AO x 3 and No Motor Deficits
Skin: Warm
Labs/Micro/Reports
Lab Data
09/03/23 04:23
09/03/23 04:23
Laboratory Results
09/02/23 09/02/23
13:11 15:15
PT 20.4 H
INR 1.77
APTT 36.8 H
pH 7.41 7.40
pCO2 39 37
pO2 99 96
HCO3 24.7 22.9
O2 Delivery Level
[2023-09-03] MEDS: NOVOLOG FLEXPEN SC ×2 (07:34→12:34)
--- NOTE | 2023-09-03 08:00 | PTCARENOTE ---
Resumed care of patient. Walking rounds completed with previous RN. Pt assessed while he was sitting in the chair. Alert and oriented x4. Rates sternal pain 1/10. Denies nausea and shortness of breath. SAMANIEGO with equal strength throughout. SR with
prolonged QT on tele with rates in the 90s. BP stable 136/77. Heart tones audible. Epicardial v-wire set to back up 50/15, no pacing noted. Bilateral radial and DP pulses palpable. No edema noted. POX 94% on RA. Lungs clear throughout. IS
encouraged-1000ml achieved. Mediastinal chest tubes x2 y-sited to 1 atrium to -20cm suction draining scant amount of serosanguineous fluid. no air leak, tidaling, crepitus noted. Abdomen soft, round, nontender. Hypoactive BS. Pt reports passing
small amount of gas. Tolerating clear liquid diet. Due to void post schofield removal. Sternal incision covered with Aquacel-CDI. Chest tube dressing CDI. Right groin incision approximated with skin glue, COLLISION MECHANIC. Right IJ cordis intact, dressing changed.
Right forearm PIV and Left AC PIV intact. See MAR for medication administration. See worklist for complete nursing assessment. Plan of care reviewed and patient in agreement.
[2023-09-03] MEDS: FLUSH (NSS) 1 FLUSH IV (08:08)
[2023-09-03] MEDS: LIDOCAINE 4% PATCH 1 PATCH TOPICAL (08:08)
[2023-09-03] MEDS: BACTROBAN 2% OINTMENT 1 APPLIC NASAL ×2 (08:08→21:37)
[2023-09-03] MEDS: MAGNESIUM OXIDE 500 MG PO ×2 (08:09→19:33)
[2023-09-03] MEDS: NEURONTIN 300 MG PO ×3 (08:09→21:38)
[2023-09-03] MEDS: PROTONIX 40 MG PO (08:09)
[2023-09-03] MEDS: SENOKOT-S 1 TABLET PO ×2 (08:09→19:32)
[2023-09-03] MEDS: LOW STRENGTH ASPIRIN 81 MG PO (08:09)
[2023-09-03] MEDS: TOPROL XL 12.5 MG PO ×2 (08:09→10:48)
[2023-09-03] MEDS: PACERONE 200 MG PO ×2 (08:09→16:03)
[2023-09-03] MEDS: FLEXERIL 5 MG PO ×2 (08:10→20:51)
[2023-09-03 08:21] LABS: Glucose - Point of Care 134 mg/dl (70-99)
[2023-09-03 09:19] LABS: Glucose - Point of Care 157 mg/dl (70-99)
[2023-09-03] MEDS: NSS IV (09:21)
--- NOTE | 2023-09-03 09:24 | W.PN.ANS.POP ---
Anesthesia Post Operative
- Anesthesia Post Op Note
Vital Signs Stable-See Nursing Note: Yes
Airway Patent: Yes
Adequate Pain Control: Yes
Change in Mental Status: No
Current Postoperative Nausea & Vomiting: No
Anesthesia Complications: No
General Anesthetic Recall: No
Unplanned Admission: No
Post Op Hydration Adequate: Yes
[2023-09-03 10:56] LABS: Glucose - Point of Care 155 mg/dl (70-99)
[2023-09-03 12:27] LABS: Glucose - Point of Care 148 mg/dl (70-99)
--- NOTE | 2023-09-03 12:30 | PTCARENOTE ---
Pt reassessed. VSS. NSR on tele with rates in the 90s. BP stable 135/69. POX 96% on RA. Surgical sites stable. Lines intact. CT output WNL. Due to void post schofield removal. Bladder scanned for 308mL, reports no urge to void. Insulin gtt infusing per
glycemic protocol. Good appetite, tolerating lunch. No other acute changes from previous assessment.
[2023-09-03 14:17] LABS: Glucose - Point of Care 256 mg/dl (70-99)
--- NOTE | 2023-09-03 14:48 | W.PN.CD ---
Today's Communication / Plan
-
Hemodynamically stable and remains in sinus rhythm. Continue postop care as directed by CT surgery
Impression / Plan
-
BACKGROUND: 58M with HTN, HLD, NIDDM, and aortic stenosis who presented with a chief complaint of shortness of breath
Severe :
--S/p Open exposure of L CFV/Mini-upper 'J-type' hemisternotomy (R 3rd ICS)/ AVR (#27 Inspiris) by Dr. Parnell, 09/02/23,
-Stable. Remains in sinus rhythm.
NICM:
-GDMT. Will assess ability to add medications as he recovers from surgery.
pSVT: Brief episodes noted preop continue to monitor postop
HLD:
LDL 67 preop
-continue statin
Mildly dilated ascending aorta, 4.0cm
Type II DM, uncontrolled, Hgba1c 9.8%:
-diabetic ECONOMIC FORECASTER and hospitalists following
Former smoker, continued cessation recommended
Physical Exam
Vital Signs/Labs
Vital Signs
Temp Pulse Resp BP Pulse Ox
97.5 F 95 18 129/64 94
09/03/23 12:00 09/03/23 14:00 09/03/23 12:00 09/03/23 14:00 09/03/23 14:00
09/02/23 09/03/23 09/04/23
06:59 06:59 06:59
Actual Weight 88.9 kg
09/03/23 04:23
09/03/23 04:23
PT 20.4 Sec (11.4-14.6) H 09/02/23 13:11
INR 1.77 09/02/23 13:11
APTT 36.8 Sec (23.4-35.0) H 09/02/23 13:11
Magnesium 2.3 mg/dl (1.6-2.3) 09/03/23 04:23
Triglycerides 122 mg/dl (10-149) 08/30/23 03:39
LDL Cholesterol, Calc 67 mg/dl 08/30/23 03:39
VLDL Cholesterol, Calc 24 mg/dl (0-30) 08/30/23 03:39
HDL Cholesterol 30 mg/dl 08/30/23 03:39
Physical Exam
Constitutional: No acute distress
Cardiovascular: Rhythm & rate is regular
Respiratory: Wheeze Absent and Rhonchi Absent
GI: Soft and Non tender
Neuro/Psych: Alert
Data Reviewed
-
Date of Service: September 03, 2023
EKG: Report Reviewed by me
Medical Tests (PFT, Pathology etc): Discussed with Physician
[2023-09-03 15:15] LABS: Glucose - Point of Care 278 mg/dl (70-99)
[2023-09-03 16:07] LABS: Glucose - Point of Care 277 mg/dl (70-99)
--- NOTE | 2023-09-03 16:15 | PTCARENOTE ---
Pt reassessed. VSS. NSR with rates in the 90s. BP stable 117/63. POX 98% on RA. Surgical sites stable. CT output WNL. Pt ambulated 100' in the rao with standby assist. Pt tolerated.
[2023-09-03] MEDS: NOVOLIN R INSULIN INFUSION 100 IV (16:18)
[2023-09-03 17:27] LABS: Glucose - Point of Care 218 mg/dl (70-99)
[2023-09-03] MEDS: NOVOLOG FLEXPEN 4 UNITS SC (18:30)
[2023-09-03] MEDS: ROXICODONE 2.5 MG PO (18:33)
[2023-09-03 18:36] LABS: Glucose - Point of Care 160 mg/dl (70-99)
--- NOTE | 2023-09-03 19:23 | PTCARENOTE ---
Bedside walking rounds report received. Patient assisted self back into bed. Room air. Sinus tach: patient did have a burst of afibb with rates to the 120's less than 3 seconds: Juan Allen PA-c aware of same. New orders received. Beta liya
increased and amiodarone tid increased. Patient was asymptomatic. See flowrecord for remaining assessments.
[2023-09-03] MEDS: TOPROL XL 25 MG PO (19:33)
[2023-09-03 19:48] LABS: Glucose - Point of Care 162 mg/dl (70-99)
[2023-09-03] MEDS: LOPRESSOR 2.5 MG IV (20:36)
[2023-09-03] MEDS: CORDARONE 103 MG IV ×2 (20:52→22:52)
[2023-09-03] MEDS: PACERONE 400 MG PO (21:38)
[2023-09-03] MEDS: PRAVACHOL 80 MG PO (21:39)
--- NOTE | 2023-09-03 22:14 | PTCARENOTE ---
Patent went back into rapid a fibb rates into 130's. Davide Allen PA-c , aware: new orders received: will give another amio bolus and if no conversion, will start amio gtt.
--- NOTE | 2023-09-03 23:00 | PTCARENOTE ---
Patient is receiving 2nd amio bolus: converted back to NSR without significant pause.
[2023-09-04] VITALS (19 sets, daily range): BP systolic 93–131; BP diastolic 59–74; BMI 28.0
--- NOTE | 2023-09-04 | PTCARENOTE ---
No acute changes. Remains in NSR
[2023-09-04 00:40] LABS: Glucose - Point of Care 176 mg/dl (70-99)
[2023-09-04 00:40] LABS: Glucose - Point of Care 152 mg/dl (70-99)
[2023-09-04 00:46] LABS: Glucose - Point of Care 117 mg/dl (70-99)
[2023-09-04] MEDS: ROXICODONE 5 MG PO (03:11)
[2023-09-04 03:12] LABS: Glucose - Point of Care 92 mg/dl (70-99)
--- NOTE | 2023-09-04 04:51 | W.PN.CT ---
Today's Communication / Plan
-
Plan:
-No major issues overnight. Hemodynamically and neurologically intact
-On insulin gtt per protocol, will transition to tele phase today once off
-Has had 2 episodes of postop a-fib with RVR (150's) lasting 20min and 45 min each. Responded to 2mg IV Lopressor and Amiodarone bolus x 2. Will up titrate PO BB/Amiodarone
-Will eventually require DOAC/NOAC if further a-fib
-Consider d/c of chest tubes: 2 meds 75/170
-Cont. current (ASA, Amiodarone, Toprol XL, Pravachol)
-Maintain cordis another day
-Maintain temporary PW (will cut before d/c home)
-Encourage use of IS
-Wean off of O2 as tolerated
-OOB into chair/Ambulate
-Replete K
Assessment / Plan
-
Assessment:
-S/p Open exposure of L CFV/Mini-upper 'J-type' hemisternotomy (R 3rd ICS)/ AVR (#27 Inspiris) by Dr. Parnell, 09/02/23, pod#2
-Zcjtfm-wr-rqqimsiq w/ P/M 97/69 w/ ADRIANA 0.4 cm2, mild AI
-NICM (LVEF 35-40%, improved to 40-45% postop per intraop LORIN)
-Mild dilation of ascending aorta (4.0cm)
-Mild TR
-HTN
-HLD
-T2DM (A1C 9.8)
-Anemia
-Former tobacco use
-Renal calculi S/P lithotripsy
-S/p Left inguinal herniorrhaphy (30 yrs ago)
-Acute postop blood loss anemia on chronic anemia (stable without blood transfusion)
-Acute postop thrombocytopenia
-Acute postop atelectasis
-Acute postop hypovolemia with subsequent hypervolemia
-Acute postop PAF(2 episodes lasting 20 min and 45 min each, received 2mg IV Lopressor and Amiodarone bolus x 2
Discussed patient care with: Cardiology, Nursing, Respiratory Therapy, Pharmacy and Care Team
Subjective
Procedure
S/p Open exposure of L CFV/Mini-upper 'J-type' hemisternotomy (R 3rd ICS)/ AVR (#27 Inspiris) by Dr. Parnell, 09/02/23
-
Date of Service: September 04, 2023
Pt c/o incisional pain, otherwise feels well
Objective Data
-
PT 20.4 Sec (11.4-14.6) H 09/02/23 13:11
INR 1.77 09/02/23 13:11
APTT 36.8 Sec (23.4-35.0) H 09/02/23 13:11
Vital Signs
Vital Signs
Temp Pulse Resp BP Pulse Ox
98.2 F 83 16 120/73 94
09/04/23 03:36 09/04/23 03:36 09/04/23 03:36 09/04/23 03:36 09/04/23 03:36
CT Intake/Output/Weight
09/03/23 09/03/23 09/04/23
06:59 18:59 06:59
Intake Total 928.7 / 1274.5 1362.0 / 2606.0 1244 / 2606.0
Output Total 830 / 1725 745 / 805 60 / 805
Balance 98.7 / -450.5 617.0 / 1801.0 1184 / 1801.0
SaO2: 94 (2L)
Physical Exam
-
General: Awake, Oriented and AOx3
Cardiovascular: Regular rate & rhythm, No Murmurs, No Rub and No Gallop
Respiratory: Decreased Breath Sounds (at bases, otherwise clear)
Sternum: Stable
Incision: Clean, Dry, Intact and Dressing Intact
Extremities: No Edema
Data Reviewed
-
Lab Results: Results Reviewed
Medications: Active Meds Reviewed
Chest X-Ray: Report Reviewed and Image Reviewed
ECG: Report Reviewed and Image Reviewed
[2023-09-04 04:52] LABS: % Basophils 0.2 % (0-2); % Eosinophils 0.2 % (0-6); % Immature Granulocytes 0.6 % (0-0.5); % Lymphocytes 17.3 % (20.5-51.1); % Monocytes 10.6 % (1.7-9.3); % Neutrophils 71.1 % (42.2-75.2); Absolute Immature Granulocytes 0.1 10^3/uL (0-0.05); Absolute Lymphocytes 2.1 10^3/uL (1.2-3.4); Absolute Monocytes 1.3 10^3/uL (0.1-0.6); Absolute Neutrophils 8.7 10^3/uL (1.4-6.5); Hemoglobin 9.7 g/dL (13.0-18.0); Mean Corp Hgb Conc. 33.4 g/dL (33.0-37.0); Mean Corpuscular Volume 86.6 fL (80.0-94.0); Mean Platelet Volume 10.3 fL (7.4-10.4); Nucleated Red Blood Cells % 0 % (-); Platelet Count 178 10^3/uL (130-400); Red Blood Cell Count 3.35 10^6/uL (4.70-6.10); Red Cell Dist. Width 13.2 % (11.5-14.5); White Blood Cell Count 12.2 10^3/uL (4.8-10.8)
[2023-09-04 05:16] LABS: Glucose - Point of Care 127 mg/dl (70-99)
[2023-09-04 05:18] LABS: Albumin 3.2 g/dl (3.5-5.0); Blood Urea Nitrogen 31 mg/dl (9-20); Calcium 8.3 mg/dl (8.4-10.2); Carbon Dioxide 25 mmol/L (22-30); Chloride 102 mmol/L (98-107); Estimated Creatinine Clearance 94 ml/min; Glucose 108 mg/dl (70-99); Magnesium 2.4 mg/dl (1.6-2.3); Phosphorus 3.5 mg/dl (2.5-4.5); Potassium 3.9 mmol/L (3.5-5.1); Sodium 135 mmol/L (135-145); eGFR > 60.00
[2023-09-04] MEDS: TYLENOL 1000 MG PO ×3 (05:51→21:45)
[2023-09-04] MEDS: KCL 20 MEQ PO ×2 (05:51→10:16)
[2023-09-04 07:14] LABS: Glucose - Point of Care 127 mg/dl (70-99)
--- NOTE | 2023-09-04 07:30 | PTCARENOTE ---
Received pt from shift mechanic RN; pt AAOx3 and resting comfortably in chair; NSR on monitor and VSS; RIJ Cordis and PIV all patent; Insulin infusing per Glycemic protocol see flow sheet for details; lungs diminished; CT x2 to -20 wall suction, no air
leak and no crepitus noted; hypoactive bowel sounds; pt voiding clear yellow urine; palpable pulses throughout; trace generalized edema noted; surgical sites C/D/I; see nursing documentation for further details.
[2023-09-04] MEDS: BACTROBAN 2% OINTMENT 1 APPLIC NASAL ×2 (07:46→19:51)
[2023-09-04] MEDS: NOVOLOG FLEXPEN 4 UNITS SC (07:46)
[2023-09-04] MEDS: PROTONIX 40 MG PO (07:46)
[2023-09-04] MEDS: LOW STRENGTH ASPIRIN 81 MG PO (07:46)
[2023-09-04] MEDS: SENOKOT-S 1 TABLET PO (07:46)
[2023-09-04] MEDS: LIDOCAINE 4% PATCH 1 PATCH TOPICAL (07:46)
[2023-09-04] MEDS: NEURONTIN 300 MG PO ×3 (07:47→21:45)
[2023-09-04] MEDS: TOPROL XL 25 MG PO ×2 (07:47→19:53)
[2023-09-04] MEDS: PACERONE 400 MG PO ×3 (07:47→21:45)
[2023-09-04 09:10] LABS: Glucose - Point of Care 111 mg/dl (70-99)
[2023-09-04] MEDS: TORADOL 15 MG IV (09:15)
--- NOTE | 2023-09-04 09:54 | PTCARENOTE ---
Mediastinal Chest tubes X2 removed per CV PA order; V wire insulated.
[2023-09-04] MEDS: JANUVIA 100 MG PO (10:16)
[2023-09-04] MEDS: FARXIGA 10 MG PO (10:16)
[2023-09-04] MEDS: LASIX 40 MG IV (10:16)
[2023-09-04 11:07] LABS: Glucose - Point of Care 118 mg/dl (70-99)
--- NOTE | 2023-09-04 12:07 | PTCARENOTE ---
Assessment unchanged; NSR on monitor and VSS; family at bedside.
[2023-09-04 12:44] LABS: Glucose - Point of Care 89 mg/dl (70-99)
[2023-09-04] MEDS: NOVOLOG FLEXPEN-MODERATE RESISTANCE SC (12:45)
[2023-09-04] MEDS: NSS 500 IV (12:46)
--- NOTE | 2023-09-04 13:36 | W.PN.CD ---
Today's Communication / Plan
-
in sinus. patient had some afib yesterday as noted
Continue current meds. Monitor arrhyhmias overnight and assess use of antioagulation
Impression / Plan
-
BACKGROUND: 58M with HTN, HLD, NIDDM, and aortic stenosis who presented with a chief complaint of shortness of breath
Severe :
--S/p Open exposure of L CFV/Mini-upper 'J-type' hemisternotomy (R 3rd ICS)/ AVR (#27 Inspiris) by Dr. Parnell, 09/02/23,
-Stable. Remains in sinus rhythm.
PAF.
-Patient had some A-fib yesterday. Received some additional amio. None since 8 PM last night
- continue amiod and beta liya
-continue to assess use of anticaogulation with CT surgery
NICM:
-GDMT. Will assess ability to add medications as he recovers from surgery.
pSVT: Brief episodes noted preop continue to monitor postop
HLD:
LDL 67 preop
-continue statin
Mildly dilated ascending aorta, 4.0cm
Type II DM, uncontrolled, Hgba1c 9.8%:
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
Former smoker, continued cessation recommended
Physical Exam
Vital Signs/Labs
Vital Signs
Temp Pulse Resp BP Pulse Ox
98.7 F 78 18 105/59 97
09/04/23 11:07 09/04/23 13:00 09/04/23 11:07 09/04/23 13:00 09/04/23 11:07
09/03/23 09/04/23 09/05/23
06:59 06:59 06:59
Actual Weight 88.9 kg 91.1 kg
09/04/23 04:33
09/04/23 04:33
PT 20.4 Sec (11.4-14.6) H 09/02/23 13:11
INR 1.77 09/02/23 13:11
APTT 36.8 Sec (23.4-35.0) H 09/02/23 13:11
Magnesium 2.4 mg/dl (1.6-2.3) H 09/04/23 04:33
Triglycerides 122 mg/dl (10-149) 08/30/23 03:39
LDL Cholesterol, Calc 67 mg/dl 08/30/23 03:39
VLDL Cholesterol, Calc 24 mg/dl (0-30) 08/30/23 03:39
HDL Cholesterol 30 mg/dl 08/30/23 03:39
Physical Exam
Constitutional: No acute distress
Cardiovascular: Rhythm & rate is regular
Respiratory: Rhonchi Absent
GI: Soft
Neuro/Psych: Alert
Data Reviewed
-
Date of Service: September 04, 2023
Medical Decision Making: Review of Case with other Provider
Medical Tests (PFT, Pathology etc): Report Reviewed by me
Labs: Labs Ordered by me
[2023-09-04 16:24] LABS: Glucose - Point of Care 259 mg/dl (70-99)
--- NOTE | 2023-09-04 16:28 | PTCARENOTE ---
Pt with no complaints of pain. Remains SR with HR 70's-80's. BP 105/62 MAP 75. Pulse oximetry 96% on room air. Pt ambulating around unit with .
[2023-09-04] MEDS: NOVOLOG FLEXPEN-MODERATE RESISTANCE 5 UNITS SC (16:54)
[2023-09-04] MEDS: SENOKOT-S PO (19:54)
--- NOTE | 2023-09-04 20:38 | PTCARENOTE ---
Assumed pt care. Pt resting in bed at time of assessment. AAO x 4, denies pain/discomfort at time of assessment. NSR on monitor, HR 70's, distal pulses palpable, no edema noted, heart tones normal, denies CP or orthopnea. POX 95% on RA while lying,
reports IS to ~1500, anterior/lateral BS clear/equal, denies SOB/GUZMÁN, non-productive cough. Pt up ad kelley, tolerating ambulation. BS audible, reports formed stool today, adequate appetite. Voiding in urinal, 350 mL output since 1999. Procedural sites
intact. RIJ cordis maintained to KVO. PIV x 2 present & patent. VSS. See MAR.
[2023-09-04] MEDS: PRAVACHOL 80 MG PO (21:44)
[2023-09-05] VITALS (7 sets, daily range): BP systolic 108–144; BP diastolic 67–89; PULSE 67; O2SAT 97–98; BMI 27.9
--- NOTE | 2023-09-05 01:04 | PTCARENOTE ---
Pt sleeping between care. VS obtained. No other changes.
--- NOTE | 2023-09-05 03:08 | PTCARENOTE ---
Pt woken to use bathroom, ambulated without issue, voided x 1. Weight obtained on standing scale. VS obtained. Labs drawn & sent. Pt offers no complaints, reports sleeping well. No other changes.
[2023-09-05 03:17] LABS: Hematocrit 29.2 % (39.0-52.0); Hemoglobin 9.6 g/dL (13.0-18.0); Mean Corp Hgb Conc. 32.9 g/dL (33.0-37.0); Mean Corpuscular Hgb 28.7 pg (27.0-31.0); Mean Corpuscular Volume 87.4 fL (80.0-94.0); Mean Platelet Volume 10.2 fL (7.4-10.4); Platelet Count 179 10^3/uL (130-400); Red Blood Cell Count 3.34 10^6/uL (4.70-6.10); Red Cell Dist. Width 13.1 % (11.5-14.5); White Blood Cell Count 9.5 10^3/uL (4.8-10.8)
[2023-09-05 03:36] LABS: Blood Urea Nitrogen 31 mg/dl (9-20); Calcium 8.5 mg/dl (8.4-10.2); Carbon Dioxide 25 mmol/L (22-30); Chloride 106 mmol/L (98-107); Estimated Creatinine Clearance 94 ml/min; Glucose 126 mg/dl (70-99); Magnesium 2.4 mg/dl (1.6-2.3); Potassium 4.5 mmol/L (3.5-5.1); Sodium 138 mmol/L (135-145); eGFR > 60.00
--- NOTE | 2023-09-05 04:25 | W.PN.CT ---
Today's Communication / Plan
-
Plan:
-No major issues overnight. Hemodynamically and neurologically intact
-Has had 2 episodes of postop a-fib with RVR (150's) lasting 20min and 45 min. Responded to 2mg IV Lopressor and Amiodarone bolus x 2
-No further a-fib since the 2 brief episodes on POD#1
-Cont. current (ASA, Amiodarone, Toprol XL, Pravachol)
-D/C cordis
-D/C temporary PW (will cut before d/c home)
-F/U 2-view cxr
-Encourage use of IS
-OOB into chair/Ambulate
-Home today
Assessment / Plan
-
Assessment:
-S/p Open exposure of L CFV/Mini-upper 'J-type' hemisternotomy (R 3rd ICS)/ AVR (#27 Inspiris) by Dr. Parnell, 09/02/23, pod#3
-Qfchrt-yq-nxihanbx w/ P/M 97/69 w/ ADRIANA 0.4 cm2, mild AI
-NICM (LVEF 35-40%, improved to 40-45% postop per intraop LORIN)
-Mild dilation of ascending aorta (4.0cm)
-Mild TR
-HTN
-HLD
-T2DM (A1C 9.8)
-Anemia
-Former tobacco use
-Renal calculi S/P lithotripsy
-S/p Left inguinal herniorrhaphy (30 yrs ago)
-Acute postop blood loss anemia on chronic anemia (stable without blood transfusion)
-Acute postop thrombocytopenia
-Acute postop atelectasis
-Acute postop hypovolemia with subsequent hypervolemia
-Acute postop PAF (2 episodes lasting 20 min and 45 min each, received 2mg IV Lopressor and Amiodarone bolus x 2)
Discussed patient care with: Cardiology, Nursing, Respiratory Therapy, Pharmacy and Care Team
Subjective
Procedure
S/p Open exposure of L CFV/Mini-upper 'J-type' hemisternotomy (R 3rd ICS)/ AVR (#27 Inspiris) by Dr. Parnell, 09/02/23
-
Date of Service: September 05, 2023
Pt c/o mild incisional pain, otherwise feels well. Ambulating halls without difficulty. Wants to go home
Objective Data
-
Lab Results
09/05/23 03:02
09/05/23 03:02
PT 20.4 Sec (11.4-14.6) H 09/02/23 13:11
INR 1.77 09/02/23 13:11
APTT 36.8 Sec (23.4-35.0) H 09/02/23 13:11
Vital Signs
Vital Signs
Temp Pulse Resp BP Pulse Ox
97.9 F 70 18 135/80 96
09/05/23 03:07 09/05/23 03:04 09/05/23 03:07 09/05/23 03:04 09/05/23 03:07
CT Intake/Output/Weight
09/04/23 09/04/23 09/05/23
06:59 18:59 06:59
Intake Total 1759 / 3135.0 136.0 / 626.0 490 / 626.0
Output Total 85 / 845 745 / 1095 350 / 1095
Balance 1674 / 2290.0 -609.0 / -469.0 140 / -469.0
SaO2: 96 (RA)
Physical Exam
-
General: Awake, Oriented and AOx3
Cardiovascular: Regular rate & rhythm, No Murmurs, No Rub and No Gallop
Respiratory: Decreased Breath Sounds (at bases, otherwise clear)
Sternum: Stable
Incision: Clean, Dry, Intact and Dressing Intact
Extremities: No Edema
Data Reviewed
-
Lab Results: Results Reviewed
Medications: Active Meds Reviewed
Chest X-Ray: Report Reviewed and Image Reviewed
ECG: Report Reviewed and Image Reviewed
[2023-09-05] MEDS: TYLENOL 1000 MG PO (06:24)
[2023-09-05] MEDS: SENOKOT-S PO (07:16)
[2023-09-05] MEDS: NSS IV (07:16)
[2023-09-05 07:25] LABS: Glucose - Point of Care 155 mg/dl (70-99)
[2023-09-05] MEDS: NOVOLOG FLEXPEN-MODERATE RESISTANCE 1 UNITS SC (07:29)
[2023-09-05] MEDS: BACTROBAN 2% OINTMENT 1 APPLIC NASAL (07:29)
[2023-09-05] MEDS: PACERONE 400 MG PO (07:30)
[2023-09-05] MEDS: LOW STRENGTH ASPIRIN 81 MG PO (07:30)
[2023-09-05] MEDS: NEURONTIN 300 MG PO (07:30)
[2023-09-05] MEDS: FARXIGA 10 MG PO (07:30)
[2023-09-05] MEDS: PROTONIX 40 MG PO (07:30)
[2023-09-05] MEDS: TOPROL XL 25 MG PO (07:30)
[2023-09-05] MEDS: JANUVIA 100 MG PO (07:30)
--- NOTE | 2023-09-05 07:30 | PTCARENOTE ---
Resumed care of patient. Walking rounds completed with previous RN. Pt assessed while he was sitting in the chair. Pt alert and oriented x4. Pt denies pain, shortness of breath, and nausea. SAMANIEGO with equal strength in all extremities. Independent in
the room and rao. NSR on tele with rates in the 70s. BP stable 128/77. Heart tones audible. Bilateral radial and DP pulses palpable. No edema noted. Epicardial v-wire insulated. POX 94% on RA. Lungs clear throughout. IS encouraged. No cough noted.
Abdomen soft, nontender. +BS. Pt voiding independently, reports no issues voiding. Sternal incision covered with Aquacel-CDI. Old chest tube sites covered, CDI. Right groin incision approximated. Right IJ cordis intact. PIV x2 intact. See MAR for
medication administration. See worklist for complete nursing assessment. Plan of care reviewed and pt in agreement.
[2023-09-05] MEDS: FLUSH (NSS) 1 FLUSH IV (07:31)
[2023-09-05] MEDS: LIDOCAINE 4% PATCH 1 PATCH TOPICAL (07:31)
--- NOTE | 2023-09-05 07:50 | PN.DE.MGMTRT ---
Insulin Management
- -
09/05/2023: Diabetes Management F/U:
Patient admitted 08/28 with increasing SOB. PMH: HTN, HCL, valvular disease, , Obesity, T2DM x12 years.
CORE MANAGER was taking Janumet 100/1000. A1C 9.8%, cr .8, eGFR > 60. reports that pt has not taken care of his diabetes. States initially he had a meter but has not used it in years, has not followed diet. Cardiac cath 08/29.
CM has researched Farxiga, patient can use copay card for 0$ copay.
Pt was provided with [employer]our Next [employer] meter and instructed with good return demonstration on 08/30
Recommended test BID when discharged and report to primary care doctor. Will follow
Patient awake, alert, sitting up in bed, offers no complaints, able to discuss diabetes mgt.
POD # 3 s/p Open exposure of L CFV/Mini-upper 'J-type' hemisternotomy (R 3rd ICS)/ AVR
Was transitioned off glycemic protocol to oral regimen and moderate corrective insulin on 09/03
Glucose has remained stable since transitioning off drip. premeal glucose 89 to 259, no HS glucose obtained last night
FBG 126 (V), 155 POC this AM. Will make no changes to current regimen. Cont Januvia 100 mg and Farxiga 10 mg.
Will cont to monitor and adjust further if necessary
Diabetes History
- -
Type of Diabetes: 2
Pre-Admission Diabetes Regimen
09/05/23
03:02
Creatinine 0.9
Lab Results
Hemoglobin A1c 9.8 % (4.0-5.6) H 08/29/23 21:27
Insulin Pump Settings
IP Diabetes Regimen
09/04/23 09/04/23 09/04/23
09:08 11:06 12:42
Glucose
POC Glucose 111 H 118 H 89
09/04/23 09/05/23 09/05/23
16:23 03:02 07:15
Glucose 126 H
POC Glucose 259 H 155 H
Meal type: Dinner
Meal type: Lunch
Meal type: Breakfast
Amount consumed: 90%
Amount consumed: 100%
Amount consumed: 100%
Patient Education
--- NOTE | 2023-09-05 09:00 | PTCARENOTE ---
V-wire cut by CT EQUIPMENT MAINTENANCE SUPERVISOR and RN. Pt tolerated. Right IJ cordis d/c, pt also tolerated. Independent in room.
--- NOTE | 2023-09-05 09:01 | W.DCSUMMARY ---
Addendum entered and electronically signed by ISABELL Gibson 09/06/23 15:36:
add to secondary diagnosis
Non-ischemic myocardial injury
Original Note:
Discharge Summary
Discharge Data
Date of Admission: 08/29/23
Date of Discharge: 09/05/23
Total time spent discharging patient (in min): 35
-
Pending Results: No
Hospital Course
Primary care physician:
Dr Paula Gonzalez
Outpatient packaging specialist:
Dr Jay
Inpatient consultants:
CBC, sustainability purchasing agent, DM management casing finisher and stuffer, Anesthesia
Procedures:
1. SAVR #27 inspiris via mini upper hemisternotomy
Primary Diagnosis:
1. Severe to critical Aortic stenosis
Secondary Diagnoses:
1. Uncontrolled type 2 diabetes
2. Hypertension
HPI: 58-year-old male presented to [facility] on 08/28 with complaints of diaphoresis and palpitations. He was found to have elevated troponins. He was found to have critical aortic stenosis on echo and was taken to the OR on 09/01 for a
aortic valve replacement with Dr. Parnell.
Hospital course: Patient was admitted to the hospital on 08/28. Patient was taken to the cardiac Field Evidence Technician on 08/29 and no coronary artery disease was found. CT surgery was consulted on 08/29 and preoperative workup was started. Patient was taken to
the CV OR on 09/01 for a surgical aortic valve replacement via a mini sternotomy. Patient returned to the CVICU on Levophed, dobutamine, insulin, and Precedex. Precedex was weaned off and patient was extubated by 1530. On 09/02 postoperative day
#1, patient was started on beta-blockers Delgado and Whitney-Morgan catheter was removed. Insulin drip was continued because A1c was 9.8. On 09/03 postoperative day #2 patient had 2 episodes of A-fib with RVR but converted to sinus rhythm on his own.
Beta-blockers were increased and oral Amio was continued. On 09/04 postoperative day #3, patient had a two-view chest x-ray that remained stable. And he was deemed stable for discharge.
Home medication changes:
See below
Discharge Plan
-
Patient Disposition: Home (Routine Discharge)
Discharge Diagnosis/Procedures: AVR
Condition: Good
Diet: Low Cholesterol and 2 Gram Sodium
Activity: No strenuous activity
Driving Restrictions: Not until seen by your Dr
Bathing Restrictions: OK to Shower
Other Services: Cardiac Rehab
Specialty Instructions: Weigh Daily- Call MD for wt gain/loss 3 lbs overnight/5 lbs in 1 week
Activity Restrictions/Additional Instructions:
ACTIVITY:
-No strenuous activity: no heavy lifting, pushing, pulling anything over 15 pounds for one month
-continue to use stairs as tolerated
DRIVING RESTRICTIONS:
-No driving for one month or until approved by your surgeon
WOUND CARE:
-Shower daily. Use soap & water.
-No lotions, creams or powders on incision area.
DIET:
-continue a low fat/low cholesterol diet.
-IF you are diabetic, continue carb controlled diet.
CARDIAC REHAB:
-Please make appointment to start in 5-6 weeks with your local hospital program. (See Cardiac Rehabilitation Discharge Booklet).
SPECIALTY INSTRUCTIONS:
-Weigh yourself daily. Call your physician for any weight gain/loss of 3 lbs overnight or 5 lbs in one week.
-REPORT any clicking noise or uneven appearance of your sternum to your surgeon immediately.
-If you smoke, you are instructed to quit. The OR smoking hotline phone number is [phone]
Stand Alone Forms: DC Instructions- Cath/EP Lab
Referrals:
CT Transitional Care Nurse [Outside] - in one to two days
(
The Cardiothoracic Transitional Care Nurse will call you to set up a visit in 1-2 days.)
[facility]iac [facility] [Outside]
(Cardiac Rehab Orientation appointment is on Tuesday10/13/2023@ 730AM.
The Cardiac Rehab gym is located on the first floor of the [facility].)
Parvin Hanson NP [Specified Professional Personl] - 10/18/23 2:40 pm
Kingston Tarango MD [Active] - (Incidental finding of mediastinal LAD on pre-AVR chest CT s/c. See in 1-2 m post d/c)
Papi Parnell MD [Active] - 10/11/23 2:00 pm
Paula Gonzalez CRNP [Family Provider] - in four to six weeks (Please make an appointment in four to six weeks. )
Additional Discharge Medication Instructions: Stop taking your Janumet and your Lisinopril-hydrochlorothiazide
Prescriptions:
New
amiodarone [Pacerone] 200 mg Tablet
200 mg PO BID 14 Days Qty: 28 0RF
amiodarone 200 mg tablet
200 mg PO DAILY Qty: 30 0RF
Rx Instructions:
Do not start until 14 days after discharge
acetaminophen 325 mg Tablet
650 mg PO Q4HPRN PRN (Reason: mild pain,headache,temp >101F ) Qty: 0 0RF
metoprolol succinate 25 mg Tablet Extended Release 24 Hr
25 mg PO BID Qty: 90 1RF
gabapentin 300 mg Capsule
300 mg PO TID Qty: 30 0RF
aspirin 81 mg Tablet,Chewable
81 mg PO DAILY Qty: 0 0RF
oxycodone 5 mg Tablet
2.5 mg PO Q6HPRN PRN (Reason: severe pain) Qty: 10 0RF
Januvia 100 mg Tablet
100 mg PO DAILY Qty: 60 0RF
dapagliflozin propanediol 10 mg Tablet
10 mg PO DAILY Qty: 30 1RF
Continued
pravastatin 80 mg Tablet
80 mg PO HS
Discontinued
lisinopril-hydrochlorothiazide 20-12.5 mg Tablet
1 tab PO DAILY
Janumet XR 100-1,000 mg Tablet, Er Multiphase 24 Hr
1 tab PO QPM
Discharge Orders:
Discharge Patient (As Directed); Ordered 09/05/23
Ordered By: Luzma Underwood
Care Plan Goals
Care Plan Goals:
Problem: Readiness for enhanced knowledge related to diagnosis and treatment plan
Goal: Understand your diagnosis and treatment plan needs, including medications if applicable.
Instructions: Know your diagnosis, underlying causes and treatment plan options, including medications if applicable. Consult with your health care team to learn about your diagnosis and treatment plan, including medications if applicable.
Discharge Date and Time
Print Language: HUNGARIAN
[2023-09-05] MEDS: LASIX 20 MG IV (09:06)
--- NOTE | 2023-09-05 10:00 | PTCARENOTE ---
Pt assisted to shower. Pt tolerated. Clothes applied. No acute changes.
--- NOTE | 2023-09-05 11:40 | PTCARENOTE ---
Discharge order received. Pt stable prior to discharge. Pt's at bedside. Instructions reviewed. All questions answered.
== END 2023-09-05 11:53 | disposition home or self-care (01) | DRG 217 ==
LOC: CVICU 21:41
PROVIDERS: Anesthesiology; Clinical Nurse Specialist Family Health; Internal Medicine; Internal Medicine Cardiovascular Disease; Nurse Practitioner; Physician Assistant Surgical; ADMITTING PHYSICIAN Hospitalist; ATTENDING PHYSICIAN Thoracic Surgery (Cardiothoracic Vascular Surgery); CONSULT PHYSICIAN Internal Medicine Cardiovascular Disease; EMERGENCY PHYSICIAN Emergency Medicine; FAMILY PHYSICIAN Nurse Practitioner; OTHER PHYSICIAN Internal Medicine Pulmonary Disease
PROC: B2111ZZ Fluoroscopy of Multiple Coronary Arteries using Low Osmolar Contrast (ICD-10-PCS; 2023-08-30)
PROC: 4A023N7 Measurement of Cardiac Sampling and Pressure, Left Heart, Percutaneous Approach (ICD-10-PCS; 2023-08-30)
PROC: B24BZZ4 Ultrasonography of Heart with Aorta, Transesophageal (ICD-10-PCS; 2023-09-02)
PROC: 02RF08Z Replacement of Aortic Valve with Zooplastic Tissue, Open Approach (ICD-10-PCS; 2023-09-02)
PROC: 5A1221Z Performance of Cardiac Output, Continuous (ICD-10-PCS; 2023-09-02)
DX: Q23.1 Congenital insufficiency of aortic valve (principal); D62 Acute posthemorrhagic anemia; I5A Non-ischemic myocardial injury (non-traumatic); I50.32 Chronic diastolic (congestive) heart failure; I42.8 Other cardiomyopathies; I47.10 Supraventricular tachycardia, unspecified; J98.11 Atelectasis; E78.5 Hyperlipidemia, unspecified; I11.0 Hypertensive heart disease with heart failure; E11.65 Type 2 diabetes mellitus with hyperglycemia; R01.1 Cardiac murmur, unspecified; I77.810 Thoracic aortic ectasia; R91.1 Solitary pulmonary nodule; I27.20 Pulmonary hypertension, unspecified; D69.59 Other secondary thrombocytopenia; E86.1 Hypovolemia; E87.70 Fluid overload, unspecified; I48.0 Paroxysmal atrial fibrillation; Z79.899 Other long term (current) drug therapy; Z87.891 Personal history of nicotine dependence; Z91.198 Patient's noncompliance with other medical treatment and regimen for other reason
CPT/HCPCS: 88305; 88311; 70355; 71045; 71046; 71250; 80048; 80053; 80061; 80069; 81003; 81015; 82248; 82330; 82565; 82805; 82947; 82962; 83036; 83735; 84132; 84302; 84484; 84520; 85014; 85018; 85025; 85027; 85049; 85379; 85610; 85730; 86850; 86900; 86901; 86920; 93005; 93306; 93312; 93320; 93325; 93454; 93880; 96361; 96372; 96374; 99285; C1894; P9045; Q9950; Q9967

== ENCOUNTER → 2023-10-27 08:01 | Outpatient (REF) | payer BC, SELFPAY | LOC: HWRCS 08:01 | PROVIDERS: ATTENDING PHYSICIAN Nurse Practitioner; FAMILY PHYSICIAN Nurse Practitioner | DX: I10 Essential (primary) hypertension (principal); Z95.2 Presence of prosthetic heart valve | CPT/HCPCS: 93306 ==

== ENCOUNTER 2023-11-09 08:14 | Outpatient (RCR) | payer BC, SELFPAY | END 2023-11-09 23:59 | disposition home or self-care (01) | LOC: CRHB 08:14 | PROVIDERS: ATTENDING PHYSICIAN Internal Medicine Cardiovascular Disease; FAMILY PHYSICIAN Internal Medicine | DX: Z95.2 Presence of prosthetic heart valve (principal) | CPT/HCPCS: 93797; 93798; G0422; G0423 ==

== ENCOUNTER → 2024-10-30 14:44 | Outpatient (REF) | payer BC, SELFPAY | LOC: HWRCS 14:44 | PROVIDERS: ATTENDING PHYSICIAN Internal Medicine Cardiovascular Disease; FAMILY PHYSICIAN Nurse Practitioner Adult Health | DX: Q23.81 Bicuspid aortic valve (principal); I48.0 Paroxysmal atrial fibrillation; Z95.2 Presence of prosthetic heart valve | CPT/HCPCS: 93306 ==

== ENCOUNTER 2024-12-24 06:29 | Day surgery (SDC) | payer BC, SELFPAY ==
[2024-12-24 09:40] LABS: Glucose - Point of Care 106 mg/dl (70-99)
== END 2024-12-24 11:38 | disposition home or self-care (01) ==
LOC: GI 06:29
PROVIDERS: ATTENDING PHYSICIAN Internal Medicine
DX: Z12.11 Encounter for screening for malignant neoplasm of colon (principal); K64.9 Unspecified hemorrhoids; D12.0 Benign neoplasm of cecum; K62.1 Rectal polyp; Z80.0 Family history of malignant neoplasm of digestive organs; Z86.0101 Personal history of adenomatous and serrated colon polyps
CPT/HCPCS: 45385; 82962; 88305